=== PATIENT | female | born 1935 | race Caucasian/White ===

== ENCOUNTER → 2021-01-12 | Outpatient (CLI) | payer OTHER | END | disposition home or self-care (01) | LOC: Rad HDHVI 11:05 | PROVIDERS: ATTEND Internal Medicine Cardiovascular Disease | DX: I11.9 Hypertensive heart disease without heart failure (principal); R06.02 Shortness of breath | CPT/HCPCS: 93306 ==

== ENCOUNTER → 2021-01-18 | Outpatient (CLI) | payer OTHER ==
[~2021-01-18] VITALS: Ht 162.6 cm; Wt 77.1 kg
[~2021-01-18] MED LIST: ADENOSINE 65 MG in GIVE UN-DILUTED 0 ML IV ONE; ADENOSINE 90 MG/30 ML INJ IV ONE
== END | disposition home or self-care (01) ==
LOC: Rad HDHVI 13:27
PROVIDERS: ATTEND Internal Medicine
DX: I10 Essential (primary) hypertension (principal); R06.02 Shortness of breath; E78.5 Hyperlipidemia, unspecified; I48.91 Unspecified atrial fibrillation
CPT/HCPCS: 78452; 93005; 96374; 96375; A9500; J0153

== ENCOUNTER → 2022-04-19 | Outpatient (CLI) | payer OTHER | END | disposition home or self-care (01) | LOC: Rad HDHVI 09:56 | PROVIDERS: ATTEND Internal Medicine | DX: R07.89 Other chest pain (principal); R06.02 Shortness of breath; E78.5 Hyperlipidemia, unspecified | CPT/HCPCS: 93306 ==

== ENCOUNTER → 2023-02-19 | Outpatient (CLI) | payer OTHER | END | disposition home or self-care (01) | LOC: Rad HDHVI 13:57 | PROVIDERS: ATTEND Internal Medicine Cardiovascular Disease | DX: I08.8 Other rheumatic multiple valve diseases (principal); R00.2 Palpitations; R06.02 Shortness of breath | CPT/HCPCS: 93306 ==

== ENCOUNTER → 2023-03-24 | Outpatient (CLI) | payer OTHER | END | disposition home or self-care (01) | LOC: Rad HDHVI 11:02 | PROVIDERS: ATTEND Internal Medicine Cardiovascular Disease | DX: I65.23 Occlusion and stenosis of bilateral carotid arteries (principal); I10 Essential (primary) hypertension; E78.5 Hyperlipidemia, unspecified | CPT/HCPCS: 93880 ==

== ENCOUNTER → 2023-09-17 | Outpatient (CLI) | payer OTHER | END | disposition home or self-care (01) | LOC: Rad HDHVI 15:46 | PROVIDERS: ATTEND Internal Medicine Cardiovascular Disease | DX: I65.23 Occlusion and stenosis of bilateral carotid arteries (principal); I10 Essential (primary) hypertension; E78.5 Hyperlipidemia, unspecified | CPT/HCPCS: 93880 ==

== ENCOUNTER 2024-02-23 12:18 | Inpatient (IN) | payer OTHER ==
[~2024-02-23] VITALS: Ht 160 cm; Wt 76.4 kg
[2024-02-23] MEDS: levoFLOXacin 500MG 100 ML IV ONE ×2 (15:45→18:59)
[2024-02-23 16:16] LABS: Hemoglobin 10.1 g/dL (12.2-16.2); Mean Corpuscular Hemoglobin 28.4 pg (28.0-32.0); Mean Corpuscular Hgb Conc. 33.5 g/dL (32.0-36.0); Mean Corpuscular Volume 84.8 fL (80.0-100.0); Red Blood Cells 3.53 10^6/uL (4.0-5.20); Red Cell Distribution Width 15.2 % (11.8-14.3); White Blood Cell 5.4 10^3/uL (4.4-10.8)
[2024-02-23 16:23] LABS: Basophils % (manual) 0 (0.0-2.0); Blast Cells 0; Metamyelocytes % 0; Myelocytes % 0; Promyelocytes % 0; Reactive Lymphocytes 0
[2024-02-23 16:40] LABS: Alanine Aminotransferase 111 U/L (7-40); Albumin 3.6 g/dL (3.2-4.8); Alkaline Phosphatase 101 U/L (46-116); Anion Gap 6 (5-15); Aspartate Aminotransferase 105 U/L (13-40); BUN/Creatinine Ratio 23.4 (10.0-20.0); Bilirubin, Total 0.4 mg/dL (0.2-1.0); Blood Urea Nitrogen 18 mg/dL (9-23); Calcium 9.4 mg/dL (8.5-10.1); Carbon Dioxide 25 mmol/L (20-30); Chloride 98 mmol/L (98-107); Glucose 96 mg/dL (74-106); Potassium 4.6 mmol/L (3.5-5.1); Sodium 129 mmol/L (136-145)
[2024-02-23 16:41] LABS: Total Protein 6.5 g/dL (5.7-8.2)
[2024-02-23 16:45] LABS: INR 1.23 (0.9-1.15); Partial Thromboplastin Time 31.9 SEC (24.5-34.5); Prothrombin Time 12.8 sec (9.3-11.8)
[2024-02-23 17:26] LABS: Band Neutrophils % (manual) 5; Eosinophils % (manual) 2 (0-7); Lymphocytes % (manual) 30 (10.0-50.0); Monocytes % (manual) 14 (0-12); Platelet Estimate Adequate
[2024-02-23 18:33] LABS: Urine Bacteria None Seen /hpf (None Seen)
[2024-02-23 18:45] LABS: Urine Blood 1+ /uL (Negative); Urine Clarity Ex.Turbid (Clear); Urine Color Light-Orange (Yellow); Urine Protein, UAD 2+ (Negative); Urine Urobilinogen Normal (Negative); Urine WBC 3138 /hpf (0 - 5); Urine WBC Clumps PRESENT /hpf (None Seen)
[2024-02-23] MEDS: SODIUM CHLORIDE 0.9% 1,000 ML IV ONE (18:59)
[2024-02-23 20:00] VITALS: PULSE 88; RESP 17; O2SAT 96
[2024-02-23] MEDS: PHENAZOPYRIDINE HCL 100 MG TAB PO ONE (20:27)
[2024-02-23] MEDS ORDERED: ACETAMINOPHEN 325 MG TAB PO PRN (20:45)
[2024-02-23] MEDS ORDERED: ONDANSETRON HCL 4 MG/2 ML VIAL IV PRN (20:45)
[2024-02-23] MEDS: PHENAZOPYRIDINE HCL 100 MG TAB PO SCH (23:33)
[2024-02-23] MEDS: HYDROcodone-ACET 5/325MG TAB PO PRN (23:33)
[2024-02-23] MEDS: APIXABAN 2.5 MG TAB PO SCH (23:34)
[2024-02-23] MEDS: ATORVASTATIN 20 MG TAB PO SCH (23:34)
[2024-02-24 04:43] LABS: Basophils # (auto) 0 10 ^3/uL (0-0.2); Basophils % (auto) 0.4 % (0.0-2.0); Eosinophils # (auto) 0.1 10 ^3/uL (0-0.8); Eosinophils % (auto) 1.1 % (0.0-7.0); Hematocrit 30.3 % (36.0-46.0); Hemoglobin 10.2 g/dL (12.2-16.2); Lymphocytes # (auto) 1.5 10 ^3/uL (0.4-5.4); Lymphocytes % (auto) 17.9 % (10.0-50.0); Mean Corpuscular Hemoglobin 28.4 pg (28.0-32.0); Mean Corpuscular Hgb Conc. 33.6 g/dL (32.0-36.0); Mean Corpuscular Volume 84.3 fL (80.0-100.0); Monocytes # (auto) 1.2 10 ^3/uL (0-1.3); Monocytes % (auto) 15.3 % (0.0-12.0); Neutrophils # (auto) 5.3 10 ^3/uL (1.6-8.6); Neutrophils % (auto) 65.3 % (37.0-80.0); Red Blood Cells 3.59 10^6/uL (4.0-5.20); Red Cell Distribution Width 15.1 % (11.8-14.3); White Blood Cell 8.1 10^3/uL (4.4-10.8)
[2024-02-24 04:53] LABS: Alanine Aminotransferase 97 U/L (7-40); Albumin 3.3 g/dL (3.2-4.8); Alkaline Phosphatase 96 U/L (46-116); Anion Gap 7 (5-15); Aspartate Aminotransferase 82 U/L (13-40); BUN/Creatinine Ratio 23.2 (10.0-20.0); Bilirubin, Total 0.5 mg/dL (0.2-1.0); Blood Urea Nitrogen 16 mg/dL (9-23); Calcium 9.1 mg/dL (8.7-10.4); Carbon Dioxide 23 mmol/L (20-30); Chloride 98 mmol/L (98-107); Glucose 91 mg/dL (74-106); Potassium 4.6 mmol/L (3.5-5.1); Sodium 128 mmol/L (136-145); Total Protein 6.3 g/dL (5.7-8.2)
[2024-02-24] MEDS: LEVOTHYROXINE SODIUM 50 MCG TAB PO SCH (06:17)
[2024-02-24 07:54] VITALS: PULSE 83; RESP 18; O2SAT 96
[2024-02-24] MEDS: cefTRIAXone 1GM/50ML D5W 50 ML IV SCH (08:12)
[2024-02-24] MEDS: METOPROLOL SUCCINATE XL 50 MG TAB PO SCH (09:46)
[2024-02-24] MEDS: LISINOPRIL 5 MG TAB PO SCH (09:46)
[2024-02-24 18:55] LABS: Triglycerides 71 mg/dL (< 150)
[2024-02-24 18:56] LABS: LDL Cholesterol 44 mg/dL (< 100)
[2024-02-24 18:57] LABS: HDL Cholesterol 41 mg/dL (40-59)
[2024-02-24 19:11] LABS: Cholesterol 94 mg/dL (< 200)
[2024-02-24 22:00] VITALS: BP 144/60; PULSE 78; RESP 18; TEMP 97.6; O2SAT 93
[2024-02-24 22:30] VITALS: PULSE 70; RESP 17; O2SAT 93
[2024-02-25] VITALS (7 sets, daily range): BP systolic 110–140; BP diastolic 23–62; PULSE 70–85; RESP 17–18; TEMP 97.7–98.4; O2SAT 92–98
[2024-02-25 01:35] LABS: Creatinine, Urine 38.97 mg/dL (30.0-125.0)
[2024-02-25 07:15] LABS: Alanine Aminotransferase 237 U/L (7-40); Albumin 3.5 g/dL (3.2-4.8); Alkaline Phosphatase 272 U/L (46-116); Anion Gap 5 (5-15); Aspartate Aminotransferase 314 U/L (13-40); BUN/Creatinine Ratio 23.5 (10.0-20.0); Basophils # (auto) 0 10 ^3/uL (0-0.2); Basophils % (auto) 0.4 % (0.0-2.0); Bilirubin, Total 0.4 mg/dL (0.2-1.0); Blood Urea Nitrogen 16 mg/dL (9-23); Calcium 9.4 mg/dL (8.5-10.1); Carbon Dioxide 26 mmol/L (20-30); Chloride 99 mmol/L (98-107); Eosinophils # (auto) 0.2 10 ^3/uL (0-0.8); Eosinophils % (auto) 2.9 % (0.0-7.0); Glucose 93 mg/dL (74-106); Hematocrit 31.3 % (36.0-46.0); Hemoglobin 10.5 g/dL (12.2-16.2); Lymphocytes # (auto) 1.2 10 ^3/uL (0.4-5.4); Lymphocytes % (auto) 18.4 % (10.0-50.0); Mean Corpuscular Hemoglobin 28.6 pg (28.0-32.0); Mean Corpuscular Hgb Conc. 33.5 g/dL (32.0-36.0); Mean Corpuscular Volume 85.4 fL (80.0-100.0); Monocytes # (auto) 0.9 10 ^3/uL (0-1.3); Monocytes % (auto) 13.2 % (0.0-12.0); Neutrophils # (auto) 4.2 10 ^3/uL (1.6-8.6); Neutrophils % (auto) 65.1 % (37.0-80.0); Nucleated Red Blood Cells % 0.1 %; Potassium 4.2 mmol/L (3.5-5.1); Red Blood Cells 3.67 10^6/uL (4.0-5.20); Red Cell Distribution Width 15.4 % (11.8-14.3); Sodium 130 mmol/L (136-145); Total Protein 6.2 g/dL (5.7-8.2); White Blood Cell 6.4 10^3/uL (4.4-10.8)
[2024-02-25 07:46] LABS: Free T3 1.93 pg/mL (2.3-4.2); Free T4 (Free Thyroxine) 1.42 ng/dL (0.89-1.76)
[2024-02-25] MEDS ORDERED: APIX2.5T PO (12:51)
[2024-02-25] MEDS ORDERED: METO25TA5 PO (12:51)
[2024-02-25] MEDS ORDERED: PRAV20TA3 PO (12:53)
[2024-02-25] MEDS ORDERED: FLEC1TAB PO (12:53)
[2024-02-25] MEDS ORDERED: LISI40TA16 PO (12:53)
[2024-02-25] MEDS ORDERED: LEVO88TA4 PO (12:53)
[2024-02-25] MEDS: SODIUM CHLORIDE 0.9% 1,000 ML IV ONE (17:00)
[2024-02-25] MEDS: LACTULOSE 20Gm/30ML SOLN PO SCH (17:40)
[2024-02-25] MEDS: MELATONIN 5 MG TAB PO SCH (21:30)
[2024-02-26] VITALS (7 sets, daily range): BP systolic 111–147; BP diastolic 63–73; PULSE 67–107; RESP 16–19; TEMP 97.3–98.3; O2SAT 95–97
[2024-02-26 07:04] LABS: Basophils # (auto) 0 10 ^3/uL (0-0.2); Eosinophils # (auto) 0.2 10 ^3/uL (0-0.8); Monocytes # (auto) 0.8 10 ^3/uL (0-1.3)
[2024-02-26 07:07] LABS: Basophils % (auto) 0.6 % (0.0-2.0); Eosinophils % (auto) 3.8 % (0.0-7.0); Hematocrit 28.9 % (36.0-46.0); Hemoglobin 9.7 g/dL (12.2-16.2); Lymphocytes # (auto) 1.3 10 ^3/uL (0.4-5.4); Lymphocytes % (auto) 19.5 % (10.0-50.0); Mean Corpuscular Hemoglobin 28.6 pg (28.0-32.0); Mean Corpuscular Hgb Conc. 33.5 g/dL (32.0-36.0); Mean Corpuscular Volume 85.5 fL (80.0-100.0); Monocytes % (auto) 12.9 % (0.0-12.0); Neutrophils # (auto) 4.1 10 ^3/uL (1.6-8.6); Neutrophils % (auto) 63.2 % (37.0-80.0); Nucleated Red Blood Cells % 0.1 %; Red Blood Cells 3.37 10^6/uL (4.0-5.20); Red Cell Distribution Width 15.1 % (11.8-14.3); White Blood Cell 6.5 10^3/uL (4.4-10.8)
[2024-02-26 07:25] LABS: Alanine Aminotransferase 151 U/L (7-40); Albumin 3.3 g/dL (3.2-4.8); Alkaline Phosphatase 198 U/L (46-116); Anion Gap 6 (5-15); Aspartate Aminotransferase 110 U/L (13-40); Blood Urea Nitrogen 17 mg/dL (9-23); Carbon Dioxide 25 mmol/L (20-30); Chloride 101 mmol/L (98-107); Glucose 101 mg/dL (74-106); Potassium 3.9 mmol/L (3.5-5.1); Sodium 132 mmol/L (136-145)
[2024-02-26 07:26] LABS: Bilirubin, Total 0.3 mg/dL (0.2-1.0); Total Protein 5.9 g/dL (5.7-8.2)
[2024-02-26] MEDS ORDERED: CIPR-173 PO (18:32)
[2024-02-27 01:00] VITALS: BP 115/58; PULSE 79; RESP 16; TEMP 97.6; O2SAT 93
[2024-02-27 05:00] VITALS: BP 133/61; PULSE 76; RESP 18; TEMP 97.9; O2SAT 92
[2024-02-27 08:00] VITALS: PULSE 76; RESP 16; O2SAT 94
[2024-02-27 08:08] VITALS: BP 127/69; PULSE 76; RESP 16; TEMP 98.8; O2SAT 94
[2024-02-27] MEDS: CIPROFLOXACIN HCL 500 MG TAB PO SCH (09:11)
[2024-02-27 11:18] VITALS: BP 127/69; PULSE 76; RESP 16; TEMP 98.9; O2SAT 94
[2024-02-27 11:48] VITALS: BP 136/67; PULSE 83; RESP 17; TEMP 97.9; O2SAT 94
== END 2024-02-27 14:20 | disposition home or self-care (01) | DRG 690 ==
LOC: EDBD 12:18 → ER 12:18 → OVERFLOW 20:48 → CENTRAL 02-24 22:30
PROVIDERS: ADMIT Internal Medicine Pulmonary Disease; ATTEND Internal Medicine Pulmonary Disease
DX: N39.0 Urinary tract infection, site not specified (principal); E87.1 Hypo-osmolality and hyponatremia; E86.0 Dehydration; E78.5 Hyperlipidemia, unspecified; E03.9 Hypothyroidism, unspecified; I10 Essential (primary) hypertension; M10.9 Gout, unspecified; I48.91 Unspecified atrial fibrillation; Z79.899 Other long term (current) drug therapy
CPT/HCPCS: 36415; 71045; 74176; 80053; 80061; 81001; 82533; 82570; 83605; 83690; 83880; 83930; 83935; 84300; 84439; 84443; 84481; 84484; 85007; 85025; 85027; 85610; 85730; 87081; 87086; 87088; 87186; 93005; 96361; 96365; 96367; 97110; 97116; 97163; 97530; G0378; J1956

== ENCOUNTER → 2024-06-25 | Outpatient (CLI) | payer OTHER ==
[~2024-06-25] MED LIST changes: -ADENOSINE 65 MG in GIVE UN-DILUTED 0 ML IV ONE; -ADENOSINE 90 MG/30 ML INJ IV ONE; +APIX2.5T PO; +CIPR-173 PO; +FLEC1TAB PO; +LEVO88TA4 PO; +LISI40TA16 PO; +METO25TA5 PO; +PRAV20TA3 PO
== END | disposition home or self-care (01) ==
LOC: Rad HDHVI 13:57
PROVIDERS: ATTEND Internal Medicine Cardiovascular Disease
DX: I10 Essential (primary) hypertension (principal); R06.02 Shortness of breath
CPT/HCPCS: 93306

== ENCOUNTER → 2024-06-30 | Outpatient (CLI) | payer OTHER | END | disposition home or self-care (01) | LOC: Rad HDHVI 12:32 | PROVIDERS: ATTEND Internal Medicine Cardiovascular Disease | DX: I10 Essential (primary) hypertension (principal) | CPT/HCPCS: 93880 ==

== ENCOUNTER 2025-04-03 11:07 | Inpatient (IN) | payer OTHER ==
[~2025-04-03] VITALS: Ht 154.9 cm; Wt 68.0 kg
--- NOTE | 2025-04-03 11:28 | ED.PDOC ---
Back pain HPI HPI Comments 89 y/o F, BIBA, with PMHx of GOUT, HTN, and AFib presents to the ED for CC of groin pain. EMS reports, patient is coming from home where she c/o right groin pain following a trip and fall [id number] ago. Patient relays, pain to worsen with movement. Upon arrival to the ED, patient is hypertensive with a blood pressure of 180/122mmHg. Patient denies head injury, open wounds, lacerations, or loss of consciousness. No other symptoms or modifying factors are present at this time. Chief Complaint: Lower Extremity Time Seen by MD: 11:25 Reviewed Notes: Nurses Notes, Stave Bolt Equalizer Notes, Medications, Allergies Allergies: Coded Allergies: NO KNOWN ALLERGIES (Unverified , 01/18/21) Home Meds Active Scripts Ciprofloxacin Hcl (Cipro) 500 Mg Tab, 1 TAB PO DAILY for 3 Days, #3 TAB Prov:BROOKLYN BRANDT RESIDENT 02/26/24 Reported Medications Levothyroxine Sodium (Levothyroxine Sodium) 88 Mcg Tab, 88 MCG PO QAM for 30 Days, MCG 02/25/24 Flecainide Acetate (Flecainide Acetate) 50 Mg Tab, 50 MG PO Q12HR for 30 Days 02/25/24 Pravastatin Sodium (PRAVACHOL TABLET) 20 Mg Tb, 40 MG PO DAILY, TAB 02/25/24 Lisinopril (Lisinopril) 40 Mg Tab, 1 TAB PO DAILY, #30 TAB 5 Refills 02/25/24 Metoprolol Tartrate (Metoprolol Tartrate) 25 Mg Tab, 25 MG PO DAILY for 30 Days, MG 02/25/24 Apixaban Base (ELIQUIS) 2.5 Mg Tab, 2.5 MG PO BID, TAB 02/25/24 Information Source: Patient, Emergency Med Personnel Mode of Arrival: EMS Timing: Weeks Duration: Since onset Location of Back pain: Other (groin pain) Severity: Moderate Prehospital treatment: None Onset: Fall History of: None Modifying Factors: Nothing Associated signs and symptoms: None Past Medical History PAST MEDICAL HISTORY: AFIB, Gout, HTN, Thyroid Surgical History: Denies all surgeries 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 COMPUTER DATA PROCESSOR History: Denies all MICRO COMPUTER DATA PROCESSOR Hx Family History Family History: Reviewed,noncontributory to illness Social History Smoker: Non-Smoker Alcohol: Denies ETOH Use Drugs: Denies Drug Use Lives In: Assisted Care Constitutional: denies: chills, diaphoresis, fatigue, fever, malaise, sweats, weakness, others EENTM: denies: blurred vision, double vision, ear bleeding, ear discharge, ear drainage, ear pain, ear ringing, eye pain, eye redness, hearing loss, mouth pain, mouth swelling, nasal discharge, nose bleeding, nose congestion, nose pain, photophobia, tearing, throat pain, throat swelling, voice changes, others Respiratory: denies: cough, hemoptysis, orthopnea, SOB at rest, shortness of breath, SOB with excertion, stridor, wheezing, others Cardiovascular: denies: chest pain, dizzy spells, diaphoresis, Dyspnea on exertion, edema, irregular heart beat, left arm pain, lightheadedness, palpitations, PND, syncope, others Gastrointestinal: denies: abdomen distended, abdominal pain, blood streaked bowels, constipated, diarrhea, dysphagia, difficulty swallowing, hematemesis, melena, nausea, poor appetite, poor fluid intake, rectal bleeding, rectal pain, vomiting, others Genitourinary: denies: abnormal vagina bleeding, burning, dyspareunia, dysuria, flank pain, frequency, hematuria, incontinence, pain, , vagina discharge, urgency, others Neurological: denies: dizziness, fainting, headache, left sided numbness, left sided weakness, numbness, paresthesia, pre-existing deficit, right sided numbness, right sided weakness, seizure, speech problems, tingling, tremors, weakness, others Musculoskeletal: denies: back pain, gout, joint pain, joint swelling, muscle pain, muscle stiffness, neck pain, others Integumetry: denies: bruises, change in color, change in hair/nails, dryness, laceration, lesions, lumps, rash, wounds, others Allergic/Immunocompromised: denies: Difficulty Healing, Frequent Infections, Hives, Itching, others Hematologic/Lymphatic: denies: anemia, blood clots, easy bleeding, easy bruising, swollen glands, others Endocrine: denies: excessive hunger, excessive sweating, excessive thirst, excessive urination, flushing, intolerance to cold, intolerance to heat, unexplained weight gain, unexplained weight loss, others Psychiatric: denies: anxiety, bipolar disorder, depression, hopeless, panic disorder, schizophrenia, sleepless, suicidal, others All Other Systems: Reviewed and Negative Physical Exam General Appearance: Moderate Distress HEENT: Normal ENT Inspection, Pharynx Normal, TMs Normal Neck: Full Range of Motion, Non-Tender, Normal, Normal Inspection Respiratory: Chest Non-Tender, Lungs Clear, No Accessory Muscle Use, No Respiratory Distress, Normal Breath Sounds Cardiovascular: No Edema, No JVD, No Murmur, No Gallop, Normal Peripheral Pulses, Regular Rate/Rhythm Breast Exam: Deferred Gastrointestinal: No Organomegaly, Non Tender, No Pulsatile Mass, Normal Bowel Sounds, Soft Genitalia: Deferred Pelvic: Deferred Rectal: Deferred Extremities: Decreased range of motion (Right lower extremity), No calf tenderness, No pedal edema Musculoskeletal : Apperance: Normal Neurologic: Alert Cerebellar Function: NOT DONE Reflexes: NOT DONE Skin: Dry, Normal Color, Warm Peripheral Pulses: 3+ Radial (R), 3+ Radial (L) Lymphatic: No Adenopathy Was a procedure done? Was a procedure done?: No Back Pain Differential Dx Differential Diagnosis: Fracture, Musculoskeletal Pain, Strain X-Ray, Labs, Meds, VS Vital Signs Date Time Temp Pulse Resp B/P (MAP) Pulse Ox O2 Delivery O2 Flow Rate FiO2 04/03/25 12:50 74 16 94 Room Air 04/03/25 12:50 98.2 74 16 160/76 (104) 94 98.2 04/03/25 12:49 160/76 04/03/25 11:11 98.4 80 18 180/122 96 98.4 Current Medications Medications (Trade) Dose Ordered Sig/Rafia Route Start Time Stop Time Status Last Admin Clonidine HCl (Catapres Tablet) 0.2 mg ONCE ONCE PO 04/03/25 11:30 04/03/25 11:31 DC 04/03/25 12:49 Patient alert pain Complaining of right lower extremity pain. Has been having on and off pain ever since she fall two weeks ago. Vitals stable. Unable to ambulate. Blood pressure elevated pain Was given clonidine. Physiotherapy. Explained to the patient she will be admitted for treatment. Continue monitoring. Time of 1ST Reevaluation: 11:55 Reevaluation 1ST: Unchanged Patient Education/Counseling: Diagnosis, Treatment Family Education/Counseling: No Family Present SEPSIS Sepsis Screen Date sepsis recognized/suspect: Apr 03, 2025 Time Sepsis recognized/suspect: 1111 Recent Procedure: No On Antibiotic Therapy: No Respiratory Rate >20: No Heart Rate >90: No Temp<36 C (96.8 F) or >38.3 C: No SBP <90 or MAP <65 mmHG: No New Acute Mental Status Change: No Is the patient on CPAP, BIPAP,: No Vital Signs Date Time Temp Pulse Resp B/P (MAP) Pulse Ox O2 Delivery O2 Flow Rate FiO2 04/03/25 12:50 74 16 94 Room Air 04/03/25 12:50 98.2 74 16 160/76 (104) 94 98.2 04/03/25 12:49 160/76 04/03/25 11:11 98.4 80 18 180/122 96 98.4 Medications Medications Dose Ordered Sig/Rafia Route Start Time Stop Time Status Last Admin Dose Admin Clonidine HCl 0.2 mg ONCE ONCE PO 04/03/25 11:30 04/03/25 11:31 DC 04/03/25 12:49 Departure 1 Departure Time of Disposition: 13:33 Impression: Primary Impression: Hypertensive urgency Additional Impression: Chronic pain syndrome Disposition: ADMITTED INPATIENT Admit to: Med Surg Condition: Guarded Critical Care Note Critical Care Time?: Yes (90 min-critical care time only) Critical care comment: Monitoring her ambulation Stability Stability form required: No Heart Score Heart Score: Heart Score Response (Comments) Value History N/A 0 EKG N/A 0 Age N/A 0 Risk Factors N/A 0 Troponin N/A 0 Total 0 I personally scribed for MARCEL TALAMANTES MD ([email or web address]) on 04/03/25 at 11:28. Electronically submitted by Nancy Palacio ([email or web address]). I personally scribed for MARCEL TALAMANTES MD ([email or web address]) on 04/03/25 at 11:35. Electronically submitted by Nancy Palacio ([email or web address]). MARCEL TALAMANTES MD Apr 03, 2025 11:28
[2025-04-03] MEDS: HYDROcodone-ACET 10/325MG TAB PO ONE (14:28)
--- NOTE | 2025-04-03 16:16 | DVH ---
EXAM: XY R KNEE 2V XRAY CLINICAL HISTORY: fall COMPARISON: None TECHNIQUE: XY R KNEE 2V XRAY Findings/Impression: 2 views of the right knee. There is no evidence of an acute fracture, dislocation, blastic, or lytic lesions. Intramedullary ginger and screw fixation of the distal femur. Osteopenia. Trace joint effusion with mild soft tissue edema.
--- NOTE | 2025-04-03 16:17 | DVH ---
EXAM: XY R FEMUR XRAY CLINICAL HISTORY: fall COMPARISON: None TECHNIQUE: XY R FEMUR XRAY Findings/Impression: 2 views of the right femur. Mildly displaced right femoral transcervical neck fracture. There is no evidence of dislocation, blastic, or lytic lesions. [id number] atherosclerosis. Intramedullary ginger and screw fixation of the right femur.
--- NOTE | 2025-04-03 16:21 | DVH ---
PROCEDURE: Pelvis radiographs. INDICATION: fall TECHNIQUE: Single frontal view of the pelvis were obtained. COMPARISON: None. FINDINGS: There is acute impacted basicervical right femoral neck fracture. There is an intramedulla ry nail in the proximal femur. Bilateral hip joint space narrowing is noted. IMPRESSION: 1. Acute impacted basicervical right femoral neck fracture. HS:Y
--- NOTE | 2025-04-03 18:26 | DVHHP2 ---
Admitting Diagnosis: Groin pain History of Present Illness 89 y/o F, BIBA, with PMHx of GOUT, HTN, and AFib presents to the ED for CC of groin pain. EMS reports, patient is coming from home where she c/o right groin pain following a trip and fall [id number] ago. Patient relays, pain to worsen with movement. Upon arrival to the ED, patient is hypertensive with a blood pressure of 180/122mmHg. Patient denies head injury, open wounds, lacerations, or loss of consciousness. No other symptoms or modifying factors are present at this time. PAST MEDICAL HISTORY: AFIB, Gout, HTN, Thyroid Surgical History: Denies all surgeries CLINICAL PROJECT MANAGER History: Denies all CLINICAL PROJECT MANAGER Hx Family History Family History: Reviewed,noncontributory to illness Social History Smoker: Non-Smoker Alcohol: Denies ETOH Use Drugs: Denies Drug Use Lives In: Assisted Care Patient Family History: Patient reports no known family medical history. Allergies: Coded Allergies: NO KNOWN ALLERGIES (Unverified , 01/18/21) Home Meds Active Scripts Ciprofloxacin Hcl (Cipro) 500 Mg Tab, 1 TAB PO DAILY for 3 Days, #3 TAB Prov:BROOKLYN BRANDT RESIDENT 02/26/24 Reported Medications Levothyroxine Sodium (Levothyroxine Sodium) 88 Mcg Tab, 88 MCG PO QAM for 30 Days, MCG 02/25/24 Flecainide Acetate (Flecainide Acetate) 50 Mg Tab, 50 MG PO Q12HR for 30 Days 02/25/24 Pravastatin Sodium (PRAVACHOL TABLET) 20 Mg Tb, 40 MG PO DAILY, TAB 02/25/24 Lisinopril (Lisinopril) 40 Mg Tab, 1 TAB PO DAILY, #30 TAB 5 Refills 02/25/24 Metoprolol Tartrate (Metoprolol Tartrate) 25 Mg Tab, 25 MG PO DAILY for 30 Days, MG 02/25/24 Apixaban Base (ELIQUIS) 2.5 Mg Tab, 2.5 MG PO BID, TAB 02/25/24 Vital Signs Vital Signs Date Time Temp Pulse Resp B/P (MAP) Pulse Ox O2 Delivery O2 Flow Rate FiO2 04/03/25 12:50 74 16 94 Room Air 04/03/25 12:50 98.2 160/76 (104) 98.2 Physical Exam Generally-89 years old woman, well nourished well developed. No apparent distress HEENT-atraumatic Heart-regular rate and rhythm Lungs clear to auscultate bilaterally Abdomen soft nontender nondistended Musculoskeletal-right hip tender to palpate. Pain with flexion extension abduction and adduction. Neuro-AO x3, no focal deficits SEPSIS Sepsis Screen Date sepsis recognized/suspect: Apr 03, 2025 Time Sepsis recognized/suspect: 1111 Recent Procedure: No On Antibiotic Therapy: No Respiratory Rate >20: No Heart Rate >90: No Temp<36 C (96.8 F) or >38.3 C: No SBP <90 or MAP <65 mmHG: No New Acute Mental Status Change: No Is the patient on CPAP, BIPAP,: No Physician Orders Pelvis Ap (04/03/25 13:31) R Femur Xray (04/03/25 13:31) R Knee 2v Xray (04/03/25 13:31) * Orthopedic Consult (04/03/25 18:21) Regular Diet (04/03/25 Dinner) Npo After Midnight (04/03/25 18:21) Npo (Nothing By Mouth) Diet (04/04/25 Breakfast) Lactated Ringers Lr (04/03/25 18:30) Sequential Compression Device (04/03/25 18:21) Admit (04/03/25 18:21) Code Status (04/03/25 18:21) Vital Signs .PER UNIT PROTOCOL (04/03/25 18:21) Review Orders With Adm.Md (04/03/25 18:21) Encourage Activity As Tolerate (04/03/25 18:21) Sodium Chloride Lock (Saline Lock Ns) (04/03/25 22:00) Docusate Sodium Capsule (Colace Capsule) (04/03/25 18:30) Acetaminophen Tablet (Tylenol Tablet) (04/03/25 18:30) Notify Md Of Changes From Base (04/03/25 18:21) Advance Directive (04/03/25 18:21) Patient Condition (04/03/25 18:21) Allergies (04/03/25 18:21) Hydrocodone-Acet 5/325mg Tab ([place] 5/32 (04/03/25 18:30) Ondansetron Hcl (Zofran) (04/03/25 18:30) Levothyroxine Tablet (Synthroid Tablet) (04/04/25 07:00) Metoprolol Tartrate Tablet (Lopressor Ta (04/04/25 10:00) Pravastatin Sodium Tablet (Pravachol Tab (04/04/25 10:00) (Nf) Lisinopril (04/04/25 10:00) Vital Signs Date Time Temp Pulse Resp B/P (MAP) Pulse Ox O2 Delivery O2 Flow Rate FiO2 04/03/25 12:50 74 16 94 Room Air 04/03/25 12:50 98.2 74 16 160/76 (104) 94 98.2 04/03/25 12:49 160/76 04/03/25 11:11 98.4 80 18 180/122 96 98.4 Medications Medications Dose Ordered Sig/Rafia Route Start Time Stop Time Status Last Admin Dose Admin Acetaminophen/ Hydrocodone Bitart 1 tab ONCE ONCE PO 04/03/25 13:45 04/03/25 13:46 DC 04/03/25 14:28 Clonidine HCl 0.2 mg ONCE ONCE PO 04/03/25 11:30 04/03/25 11:31 DC 04/03/25 12:49 Primary Diagnosis Right hip fracture Mechanical fall Plan IV fluids Orthopedic surgery consult last dose of Eliquis last night ivf pain control resume home meds full code npo after midnight scd for dvt ppx no gi ppx needed Plan discussed with: Patient Problems List: (1) Hip fracture, right Status: Acute Date of Service: Apr 03, 2025 Billing Provider: GERALD MORA MD Common Visit Codes: [id number] INP/OBS CARE (MOD) GERALD MORA MD Apr 03, 2025 18:26
[2025-04-03] MEDS ORDERED: ONDANSETRON HCL 4 MG/2 ML VIAL IV PRN (18:30)
[2025-04-03 20:41] VITALS: BP 144/75; PULSE 69; RESP 18; TEMP 98.3; O2SAT 97
[2025-04-03 20:42] VITALS: PULSE 69; RESP 18; O2SAT 97
[2025-04-03] MEDS: LACTATED RINGER'S 1,000 ML IV ONE (21:35)
[2025-04-03] MEDS: SODIUM CHLOR 0.9% PF (SALINE LOCK) 10ML VIAL/SYR IV SCH (21:46)
[2025-04-03] MEDS: PRAVASTATIN SODIUM 20 MG TAB PO SCH (22:05)
[2025-04-04 01:00] VITALS: BP 122/67; PULSE 66; RESP 18; TEMP 98.3; O2SAT 98
[2025-04-04] MEDS: ACETAMINOPHEN 325 MG TAB PO PRN (03:34)
[2025-04-04 05:00] VITALS: BP 124/65; PULSE 68; RESP 18; TEMP 97.6; O2SAT 92
[2025-04-04] MEDS: LEVOTHYROXINE SODIUM 88 MCG TAB PO SCH (06:33)
--- NOTE | 2025-04-04 06:41 | DVH ---
CHEST RADIOGRAPH Indication: possible surgery Technique: Single frontal view of the chest was obtained COMPARISON: XY CHEST PORTABLE on DOS: 02/23/24 FINDINGS: Lines and Tubes: None Lungs: Clear Pleura: No effusion. No pneumothorax. Cardiomediastinal contours: Unremarkable Bones: Unremarkable IMPRESSION: 1. No acute disease.
[2025-04-04 07:37] LABS: Hematocrit 37.7 % (36.0-46.0); Hemoglobin 13.5 g/dL (12.2-16.2); Mean Corpuscular Hemoglobin 31.4 pg (28.0-32.0); Mean Corpuscular Volume 87.6 fL (80.0-100.0); Nucleated Red Blood Cells % 0.0 %
[2025-04-04 07:52] LABS: INR 1.17 (0.9-1.15); Partial Thromboplastin Time 30.1 SEC (24.5-34.5); Prothrombin Time 12.2 sec (9.3-11.8)
--- NOTE | 2025-04-04 07:56 | DVHINCON2 ---
Date of service: Apr 04, 2025 Reason for Consultation Displaced right femoral neck fracture History of Present Illness 89 yo F sp mechanical fall 2 weeks ago onto her right side. Pain/swellin g/trouble walking that has been getting worse. She initially went to [facility] 2 weeks ago. Hx of ORIF right distal femur fracture at outside facility many years ago. 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 SECRETARY Hx Family History: Bone cancer G8 BROTHER FH: lung cancer G8 SISTER Allergies: Coded Allergies: NO KNOWN ALLERGIES (Unverified , 01/18/21) Home Meds Active Scripts Ciprofloxacin Hcl (Cipro) 500 Mg Tab, 1 TAB PO DAILY for 3 Days, #3 TAB Prov:BROOKLYN BRANDT RESIDENT 02/26/24 Reported Medications Levothyroxine Sodium (Levothyroxine Sodium) 88 Mcg Tab, 88 MCG PO QAM for 30 Days, MCG 02/25/24 Flecainide Acetate (Flecainide Acetate) 50 Mg Tab, 50 MG PO Q12HR for 30 Days 02/25/24 Pravastatin Sodium (PRAVACHOL TABLET) 20 Mg Tb, 40 MG PO DAILY, TAB 02/25/24 Lisinopril (Lisinopril) 40 Mg Tab, 1 TAB PO DAILY, #30 TAB 5 Refills 02/25/24 Metoprolol Tartrate (Metoprolol Tartrate) 25 Mg Tab, 25 MG PO DAILY for 30 Days, MG 02/25/24 Apixaban Base (ELIQUIS) 2.5 Mg Tab, 2.5 MG PO BID, TAB 02/25/24 Current Medications Current Medications Medications (Trade) Dose Ordered Sig/Rafia Route PRN Reason Start Time Stop Time Status Last Admin Sodium Chloride (Saline Lock Ns) 10 ml Q8HR IV 04/03/25 22:00 04/04/25 06:00 Docusate Sodium (Colace Capsule) 100 mg BIDPRN PRN PO FOR CONSTIPATION 04/03/25 18:30 Acetaminophen (Tylenol Tablet) 650 mg Q6HP PRN PO PAIN SCALE 1-3 OR TEMP>100.4 04/03/25 18:30 04/04/25 03:34 Acetaminophen/ Hydrocodone Bitart ([place] 5/325MG Tab) 1 tab Q4HP PRN PO MODERATE PAIN (4-6 PAIN SCALE) 04/03/25 18:30 Ondansetron HCl (Zofran) 4 mg Q4HP PRN IV NAUSEA / VOMITING 04/03/25 18:30 Levothyroxine Sodium (Synthroid Tablet) 88 mcg QAM PO 04/04/25 07:00 Metoprolol Tartrate (Lopressor Tablet) 25 mg DAILY PO 04/04/25 10:00 Future Hold Pravastatin Sodium (Pravachol Tablet) 40 mg HS PO 04/03/25 22:00 04/03/25 22:05 Lisinopril (Zestril Tablet) 40 mg DAILY PO 04/04/25 10:00 Review of Systems 10 point ROS is neg except per HPI Vital Signs Vital Signs Date Time Temp Pulse Resp B/P (MAP) Pulse Ox O2 Delivery O2 Flow Rate FiO2 04/04/25 05:00 97.6 68 18 124/65 (84) 92 97.6 04/03/25 20:42 Room Air* 0 21 Physical Exam NAD RLE: short/rotated +TA/GS/EHL/FHL foot wwp prev incisions well healed Labs/Diagnostic Data Labs Test 04/04/25 07:03 Range/Units White Blood Count 6.6 4.4-10.8 10^3/uL Red Blood Count 4.30 4.0-5.20 10^6/uL Hemoglobin 13.5 12.2-16.2 g/dL Hematocrit 37.7 36.0-46.0 % Mean Corpuscular Volume 87.6 80.0-100.0 fL Mean Corpuscular Hemoglobin 31.4 28.0-32.0 pg Mean Corpuscular Hemoglobin Concent 35.8 32.0-36.0 g/dL Red Cell Distribution Width 13.7 11.8-14.3 % Platelet Count 341 140-450 10^3/uL Mean Platelet Volume 7.1 6.9-10.8 fL Neutrophils (%) (Auto) 62.6 37.0-80.0 % Lymphocytes (%) (Auto) 26.0 10.0-50.0 % Monocytes (%) (Auto) 9.1 0.0-12.0 % Eosinophils (%) (Auto) 1.8 0.0-7.0 % Basophils (%) (Auto) 0.5 0.0-2.0 % Neutrophils # (Auto) 4.2 1.6-8.6 10 ^3/uL Lymphocytes # (Auto) 1.7 0.4-5.4 10 ^3/uL Monocytes # (Auto) 0.6 0-1.3 10 ^3/uL Eosinophils # (Auto) 0.1 0-0.8 10 ^3/uL Basophils # (Auto) 0 0-0.2 10 ^3/uL Nucleated Red Blood Cells 0.0 % Plan/Recommendation 89 yo F with hx of ORIF right distal femur fracture with IMN and a displaced right femoral neck fracture 1. I rec patient to go to a trauma center where she will need to have right retrograde femoral nail removal at same time of arthroplasty procedure -- she will need orthopedic trauma specialist 2. NWB RLE 3. pain control 4. resume diet for today Plan discussed with: Patient MARI NESS MD Apr 04, 2025 07:56
[2025-04-04 08:02] LABS: Albumin 4.0 g/dL (3.2-4.8); Alkaline Phosphatase 102 U/L (46-116); Anion Gap 12 (5-15); BUN/Creatinine Ratio 23.1 (10.0-20.0); Bilirubin, Total 1.0 mg/dL (0.2-1.0); Blood Urea Nitrogen 18 mg/dL (9-23); Calcium 9.3 mg/dL (8.7-10.4); Carbon Dioxide 23 mmol/L (20-31); Chloride 98 mmol/L (98-107); Glucose 85 mg/dL (74-106); Potassium 4.0 mmol/L (3.5-5.1); Total Protein 6.5 g/dL (5.7-8.2)
[2025-04-04 08:03] LABS: Alanine Aminotransferase 129 U/L (7-40); Sodium 133 mmol/L (136-145)
[2025-04-04 08:59] VITALS: BP 134/85; PULSE 80; RESP 18; TEMP 97.9; O2SAT 97
[2025-04-04] MEDS: LISINOPRIL 20 MG TAB PO SCH (09:04)
[2025-04-04] MEDS ORDERED: METO25TA93 PO (09:47)
[2025-04-04] MEDS ORDERED: METOPROLOL TARTRATE 25 MG TAB PO SCH (10:00)
--- NOTE | 2025-04-04 11:35 | DVH ---
History: fracture Comparison Study: XY PELVIS AP on DOS: 04/03/25, CT CT AB PEL WO CON-NO ORAL OR IV on DOS: 02/25/24 Technique: Multidetector spiral CT of the pelvis was performed from iliac crests to pubic symphysis. 100 cc of intravenous contrast was administered during this examination. Portal venous imaging was obtained. Axial, coronal and sagittal multiplanar reformats were performed by the technologist on a separate workstation. Radiation Dose : CT Dose: CTDI volume is 16.11 mGy. Dose-length product is 644.56 mGy*cm Findings: Visualized bowel: Small bowel and colon are normal in caliber and distribution. The appendix is not visualized; however, no secondary findings of acute appendicitis identified. Ascites: Absent Lymphadenopathy: No pelvic or mesenteric lymphadenopathy. Pelvis Wall and Mesentery: Unremarkable. Vasculature: The visualized abdominal aorta is normal in size and caliber. Abdominal and pelvic vess els demonstrate normal enhancement. Pelvic Organs: Unremarkable Musculoskeletal: Diffuse osteopenia. Moderate degenerative changes of bilateral hips, [id number]-left. Displaced fracture of the proximal right femoral head neck junction. Intramedullary ginger fixation of the right femur, partially imaged. Bladder: Unremarkable IMPRESSION: Displaced fracture of the proximal right femoral head neck junction.
[2025-04-04] MEDS: ENOXAPARIN SOD 80 MG/0.8ML SYRINGE SC ONE (12:37)
[2025-04-04 13:00] VITALS: BP 149/88; PULSE 73; RESP 16; TEMP 98.1; O2SAT 98
--- NOTE | 2025-04-04 14:23 | DVHDSRES ---
Discharge Summary Date of Admission Resident Creating Document: KELVIN DIAZ RESIDENT Apr 03, 2025 at 18:21 Date of Discharge: Apr 04, 2025 Admitting Diagnosis Right Femoral Neck Fracture Wounds: No wounds Labs/Diagnostic Data: Laboratory Results Test 04/04/25 07:03 White Blood Count 6.6 10^3/uL (4.4-10.8) Red Blood Count 4.30 10^6/uL (4.0-5.20) Hemoglobin 13.5 g/dL (12.2-16.2) Hematocrit 37.7 % (36.0-46.0) Mean Corpuscular Volume 87.6 fL (80.0-100.0) Mean Corpuscular Hemoglobin 31.4 pg (28.0-32.0) Mean Corpuscular Hemoglobin Concent 35.8 g/dL (32.0-36.0) Red Cell Distribution Width 13.7 % (11.8-14.3) Platelet Count 341 10^3/uL (140-450) Mean Platelet Volume 7.1 fL (6.9-10.8) Neutrophils (%) (Auto) 62.6 % (37.0-80.0) Lymphocytes (%) (Auto) 26.0 % (10.0-50.0) Monocytes (%) (Auto) 9.1 % (0.0-12.0) Eosinophils (%) (Auto) 1.8 % (0.0-7.0) Basophils (%) (Auto) 0.5 % (0.0-2.0) Neutrophils # (Auto) 4.2 10 ^3/uL (1.6-8.6) Lymphocytes # (Auto) 1.7 10 ^3/uL (0.4-5.4) Monocytes # (Auto) 0.6 10 ^3/uL (0-1.3) Eosinophils # (Auto) 0.1 10 ^3/uL (0-0.8) Basophils # (Auto) 0 10 ^3/uL (0-0.2) Nucleated Red Blood Cells 0.0 % Prothrombin Time 12.2 sec (9.3-11.8) Prothrombin Time INR 1.17 (0.9-1.15) Activated Partial Thromboplast Time 30.1 SEC (24.5-34.5) Sodium Level 133 mmol/L (136-145) Potassium Level 4.0 mmol/L (3.5-5.1) Chloride Level 98 mmol/L (98-107) Carbon Dioxide Level 23 mmol/L (20-31) Anion Gap 12 (5-15) Blood Urea Nitrogen 18 mg/dL (9-23) Creatinine 0.78 mg/dL (0.550-1.02) Glomerular Filtration Rate Calc 73 mL/min (>90) BUN/Creatinine Ratio 23.1 (10.0-20.0) Serum Glucose 85 mg/dL (74-106) Calcium Level 9.3 mg/dL (8.7-10.4) Total Bilirubin 1.0 mg/dL (0.2-1.0) Aspartate Amino Transferase (AST) 84 U/L (13-40) Alanine Aminotransferase (ALT) 129 U/L (7-40) Alkaline Phosphatase 102 U/L (46-116) Total Protein 6.5 g/dL (5.7-8.2) Albumin 4.0 g/dL (3.2-4.8) Other Laboratory Tests 04/04/25 07:03 Brief Hx & Hospital Course: Patient is an 89-year-old female with prior medical history of gout, hypertension, hypothyroidism, AFib on Eliquis, and previous femoral fracture requiring surgery in December 2024, who presented to the ED by ambulance with chief complaint of hip pain. patient states that she tripped on a throw rug at home and fell on March 18, 2025, and had instant on of severe right hip and groin pain with intensity 10/10. She states she was unable to get up on her own and had to be lifted into a chair by family. she was taken to [facility] where she states they were told she had no fractures was kept through the weekend for pain control and PT evaluation. She was discharged with home PT, and states the pain progressively got worse until she was unable to walk, which prompted her family to call EMS. On evaluation in the ED, patient was in moderate distress, unable to ambulate, and hypertensive. Initial labs are within normal range. Right femur x-ray shows mildly displaced right femoral transcervical neck fracture. Patient was admitted for further workup and monitoring. On admission, and was started on antihypertensive medication and pain regimen. Pelvic CT was ordered which showed displaced fracture of the proximal right femoral head neck junction. Eliquis has been discontinued, but due to history of AFib, therapeutic Lovenox was started. She was seen by Orthopedics who recommend, that due to the complexity of the case the patient be seen by an orthopedic trauma specialist. On evaluation today, patient stated she felt well, pain was controlled with medication and limited movement and vitals have remained stable. Social service consult for transfer to higher level of care has been placed. She is considered stable for transfer and will be transferred once accepted. Physical exam: General: Patient alert and oriented in person place and time. Patient following commands HEENT: Normocephalic, atraumatic, EOM intact, pink conjunctiva, pink moist mucous membrane Respiratory/pulmonary: Bilateral expansion, clear lungs bilaterally, vesicular murmurs present in almost all lung adame, no associated crackles or wheezes, no pain on palpation Cardiovascular: Normal RRR, normal S1 and S2 Abdomen: Obese, abdomen nondistended, normal bowel sounds, soft, no pain to palpation in any of the abdominal quadrants, no palpable masses. Extremities: Right lower extremity is short and externally rotated, no peripheral edema present at the lower extremities, pain to palpation of right hip, normal pulses Skin: No rashes or pruritus Neurological: Intact cranial nerves with no focal neurologic deficits Case discussed with Dr. Slaughter. Goals of care discussed with the patient and her daughter Gilma for over 30 minutes, who state they understand and agree. Consults/Reason for consult Orthopedics was consulted due to femoral neck fracture. Operations or Procedures PROCEDURE(s): RFEM - R FEMUR XRAY REASON: fall ORDER NUMBER(s): [id number], ACCESSION NUMBER(s): [id number] EXAM: XY R FEMUR XRAY CLINICAL HISTORY: fall COMPARISON: None TECHNIQUE: XY R FEMUR XRAY Findings/Impression: 2 views of the right femur. Mildly displaced right femoral transcervical neck fracture. There is no evidence of dislocation, blastic, or lytic lesions. Knfo-nk-ejxpptiq atherosclerosis. Intramedullary ginger and screw fixation of the right femur. PROCEDURE(s): RKNE2 - R KNEE 2V XRAY REASON: fall ORDER NUMBER(s): [id number], ACCESSION NUMBER(s): [id number] EXAM: XY R KNEE 2V XRAY CLINICAL HISTORY: fall COMPARISON: None TECHNIQUE: XY R KNEE 2V XRAY Findings/Impression: 2 views of the right knee. There is no evidence of an acute fracture, dislocation, blastic, or lytic lesions. Intramedullary ginger and screw fixation of the distal femur. Osteopenia. Trace joint effusion with mild soft tissue edema. PROCEDURE(s): PELVS - PELVIS AP REASON: fall ORDER NUMBER(s): [id number], ACCESSION NUMBER(s): [id number] PROCEDURE: Pelvis radiographs. INDICATION: fall TECHNIQUE: Single frontal view of the pelvis were obtained. COMPARISON: None. FINDINGS: There is acute impacted basicervical right femoral neck fracture. There is an intramedullary nail in the proximal femur. Bilateral hip joint space narrowing is noted. IMPRESSION: 1. Acute impacted basicervical right femoral neck fracture. PROCEDURE(s): CXRP - CHEST PORTABLE REASON: possible surgery ORDER NUMBER(s): [id number], ACCESSION NUMBER(s): [id number] CHEST RADIOGRAPH Indication: possible surgery Technique: Single frontal view of the chest was obtained COMPARISON: XY CHEST PORTABLE on DOS: 02/23/24 FINDINGS: Lines and Tubes: None Lungs: Clear Pleura: No effusion. No pneumothorax. Cardiomediastinal contours: Unremarkable Bones: Unremarkable IMPRESSION: 1. No acute disease. PROCEDURE(s): PL2CT - PELVIS WO CONTRAST REASON: fracture ORDER NUMBER(s): [id number], ACCESSION NUMBER(s): [id number] History: fracture Comparison Study: XY PELVIS AP on DOS: 04/03/25, CT CT AB PEL WO CON-NO ORAL OR IV on DOS: 02/25/24 Technique: Multidetector spiral CT of the pelvis was performed from iliac crests to pubic symphysis. 100 cc of intravenous contrast was administered during this examination. Portal venous imaging was obtained. Axial, coronal and sagittal multiplanar reformats were performed by the technologist on a separate workstation. Radiation Dose : CT Dose: CTDI volume is 16.11 mGy. Dose-length product is 644.56 mGy*cm Findings: Visualized bowel: Small bowel and colon are normal in caliber and distribution. The appendix is not visualized; however, no secondary findings of acute appendicitis identified. Ascites: Absent Lymphadenopathy: No pelvic or mesenteric lymphadenopathy. Pelvis Wall and Mesentery: Unremarkable. Vasculature: The visualized abdominal aorta is normal in size and caliber. Abdominal and pelvic vessels demonstrate normal enhancement. Pelvic Organs: Unremarkable Musculoskeletal: Diffuse osteopenia. Moderate degenerative changes of bilateral hips, [id number]-left. Displaced fracture of the proximal right femoral head neck junction. Intramedullary ginger fixation of the right femur, partially imaged. Bladder: Unremarkable IMPRESSION: Displaced fracture of the proximal right femoral head neck junction. Condition at Discharge: Stable Final Diagnosis/Problems List Displaced fracture of the proximal right femoral head neck junction Hypertensive urgency Hypertension History of AFib History of hypothyroidism Discharge Disposition: Acute Care Facility Discharge Instruct/Medications Diet: Cardiac 2g Na,low cholest Activity: See Comment Activity comment: No weight bearing Follow Up/Referral: Follow up with PCP 1 week after discharge Follow up with orthopedist one week after discharge Medications: as per EMR Scheduled Apixaban Base (Eliquis), 2.5 MG PO BID, (Reported) Ciprofloxacin Hcl (Cipro), 1 TAB PO DAILY Flecainide Acetate (Flecainide Acetate), 50 MG PO Q12HR, (Reported) Levothyroxine Sodium (Levothyroxine Sodium), 88 MCG PO QAM, (Reported) Lisinopril (Lisinopril), 1 TAB PO DAILY, (Reported) Metoprolol Succinate (Metoprolol Succinate Er), 1 TAB PO DAILY, (Reported) Pravastatin Sodium (Pravachol Tablet), 40 MG PO DAILY, (Reported) Discontinued Medications Metoprolol Tartrate (Metoprolol Tartrate), 25 MG PO DAILY, (Reported) Discontinued Reason: Prescription changed Discharge Statement: "Patient was advised to return to the ER or call 911 if any headaches, dizziness, shortness of breath, chest pain, abdominal pain, bleeding, fevers, or worsening of medical condition. Patient was counseled about treatment plan, medications, possible side effects, patientverbalized understanding. All questions were answered to the best of my ability. This discharge took greater then 30 minutes in planning, reviewing documentation, counseling the patient, and discussing with other team members." ASSESSMENT ASSESSMENT Assessment Acute impaccted basicervical right femoral neck fracture Date of Service: Apr 04, 2025 Billing Provider: TRAVIS SLAUGHTER MD Common Visit Codes: [id number]/[id number] DISCH DAY >30min KELVIN DIAZ RESIDENT Apr 04, 2025 14:23 TRAVIS SLAUGHTER MD Apr 10, 2025 12:31
[2025-04-04] MEDS: HYDROcodone-ACET 5/325MG TAB PO PRN (14:31)
[2025-04-04 17:00] VITALS: BP 131/78; PULSE 78; RESP 16; TEMP 98; O2SAT 97
[2025-04-04 20:59] VITALS: BP 135/70; PULSE 93; RESP 18; TEMP 98; O2SAT 94
[2025-04-04] MEDS: ENOXAPARIN SOD 100 MG/1 ML SYRINGE SC SCH (21:27)
[2025-04-05 01:01] VITALS: BP 103/58; PULSE 67; RESP 16; TEMP 98.1; O2SAT 91
[2025-04-05 05:11] VITALS: BP 95/56; PULSE 66; RESP 17; TEMP 97.1; O2SAT 92
[2025-04-05 06:29] LABS: Hematocrit 39.8 % (36.0-46.0); Hemoglobin 13.9 g/dL (12.2-16.2); Mean Corpuscular Hemoglobin 30.7 pg (28.0-32.0); Mean Corpuscular Volume 87.8 fL (80.0-100.0); Nucleated Red Blood Cells % 0.1 %
[2025-04-05 06:53] LABS: Alkaline Phosphatase 100 U/L (46-116); Anion Gap 12 (5-15); BUN/Creatinine Ratio 29.7 (10.0-20.0); Calcium 9.5 mg/dL (8.7-10.4); Carbon Dioxide 21 mmol/L (20-31); Chloride 100 mmol/L (98-107); Glucose 91 mg/dL (74-106); Potassium 4.1 mmol/L (3.5-5.1); Total Protein 6.4 g/dL (5.7-8.2)
[2025-04-05 06:54] LABS: Albumin 3.8 g/dL (3.2-4.8); Bilirubin, Total 0.6 mg/dL (0.2-1.0)
[2025-04-05 06:56] LABS: Alanine Aminotransferase 85 U/L (7-40); Blood Urea Nitrogen 27 mg/dL (9-23); Sodium 133 mmol/L (136-145)
[2025-04-05 08:46] VITALS: BP 107/66; PULSE 62; RESP 18; TEMP 97.9; O2SAT 96
[2025-04-05 08:50] LABS: Urine Protein, UAD Negative (Negative)
[2025-04-05 12:51] VITALS: BP 101/55; PULSE 92; RESP 14; TEMP 97.3; O2SAT 98
--- NOTE | 2025-04-05 15:58 | DVHPNRES ---
Progress Note Date Seen: Apr 05, 2025 Resident Creating Document: KELVIN DIAZ Medical Necessity Reason Pt with a Central, PICC or Fol: Yes Reason for barraza catheter: Total Immobilization Medical Necessity Reason Patient is an 89-year-old female with prior medical history of gout, hypertension, hypothyroidism, AFib on Eliquis, and previous femoral fracture requiring surgery in December 2024, who presented to the ED by ambulance with chief complaint of hip pain. patient states that she tripped on a throw rug at home and fell on March 18, 2025, and had instant on of severe right hip and groin pain with intensity 10/10. She states she was unable to get up on her own and had to be lifted into a chair by family. she was taken to [facility] where she states they were told she had no fractures was kept through the weekend for pain control and PT evaluation. She was discharged with home PT, and states the pain progressively got worse until she was unable to walk, which prompted her family to call EMS. On evaluation in the ED, patient was in moderate distress, unable to ambulate, and hypertensive. Initial labs are within normal range. Right femur x-ray shows mildly displaced right femoral transcervical neck fracture. Patient was admitted for further workup and monitoring. On admission, and was started on antihypertensive medication and pain regimen. Pelvic CT was ordered which showed displaced fracture of the proximal right femoral head neck junction. Eliquis has been discontinued, but due to history of AFib, therapeutic Lovenox was started. She was seen by Orthopedics who recommend, that due to the complexity of the case the patient be seen by an orthopedic trauma specialist. On evaluation today, patient stated she felt well, pain was controlled with medication and limited movement and vitals have remained stable. Social service consult for transfer to higher level of care has been placed. She is considered stable for transfer and will be transferred once accepted. Patient seen at bedside. She states she feels well, pain is controlled, slept well, and is tolerating oral diet. Currently denies fever, nausea, chills, increased pain, diarrhea, shortness for breath, chest pain, or other symptoms. Vital signs have been stable. Follow up las within normal range. Patient has been accepted at [facility]. Currently pending insurance authorization for transfer and transportation. Objective vital signs Vital Sign Date Time Temp Pulse Resp B/P (MAP) Pulse Ox O2 Delivery O2 Flow Rate FiO2 04/05/25 12:51 97.3 92 14 101/55 (70) 98 97.3 04/05/25 08:08 Room Air* 0 21 Total Intake and Output 04/04/25 04/04/25 04/05/25 15:00 23:00 07:00 Intake Total 400 ml 600 ml Output Total 1200 ml Balance 400 ml -600 ml medications Current Medications Medications Dose Ordered Sig/Rafia Route Start Time Stop Time Status Last Admin Dose Admin Sodium Chloride 10 ml Q8HR IV 04/03/25 22:00 04/05/25 14:15 10 ML Docusate Sodium 100 mg BIDPRN PRN PO 04/03/25 18:30 Acetaminophen 650 mg Q6HP PRN PO 04/03/25 18:30 04/05/25 04:43 650 MG Acetaminophen/ Hydrocodone Bitart 1 tab Q4HP PRN PO 04/03/25 18:30 04/05/25 15:29 1 TAB Ondansetron HCl 4 mg Q4HP PRN IV 04/03/25 18:30 Levothyroxine Sodium 88 mcg QAM PO 04/04/25 07:00 04/05/25 06:47 88 MCG Metoprolol Tartrate 25 mg DAILY PO 04/04/25 10:00 Hold Pravastatin Sodium 40 mg HS PO 04/03/25 22:00 04/04/25 21:27 40 MG Lisinopril 40 mg DAILY PO 04/04/25 10:00 04/05/25 10:08 40 MG Enoxaparin Sodium 70 mg Q12HR SC 04/04/25 22:00 04/05/25 10:07 70 MG Examination General: Patient alert and oriented in person place and time. Patient following commands HEENT: Normocephalic, atraumatic, EOM intact, pink conjunctiva, pink moist mucous membrane Respiratory/pulmonary: Bilateral expansion, clear lungs bilaterally, vesicular murmurs present in almost all lung adame, no associated crackles or wheezes, no pain on palpation Cardiovascular: Normal RRR, normal S1 and S2 Abdomen: Obese, abdomen nondistended, normal bowel sounds, soft, no pain to palpation in any of the abdominal quadrants, no palpable masses. : Presence of barraza catheter draining clear urine Extremities: Right lower extremity is short and externally rotated, no peripheral edema present at the lower extremities, pain to palpation of right hip, normal pulses Skin: No rashes or pruritus Neurological: Intact cranial nerves with no focal neurologic deficits laboratory and microbiology Laboratory Tests 04/05/25 05:49 Test 04/05/25 05:49 Range/Units Serum Glucose 91 74-106 mg/dL Microbiology Date/Time Source Procedure Growth Status 04/04/25 05:00 Nose MRSA Screen - Final Complete Problem List/Assessment/Plan Problem List/Assessment/Plan Assessment and plan Displaced fracture of the proximal right femoral head neck junction R. femur fraction: displaced right femur transcervical neck fracture. Pelvic Xray: Acute impacted basicervical right femoral neck fracture Pelvis CT: displaced fracture of the proximal right femoral head next junction -Taylor 5 mg 1 tablet q4h PO PRN -Acetaminophen 650 mg q6 PO PRN -Per Orthopedics: recommend patient go to a trauma center where she will need to have right retrograde femoral nail removal at same time of arthroplasty procedure, she will need Orthopedic Trauma Specialists. Non weight bearing of the right lower extremity. Hypertensive urgency - clonidine 0.2 mg p.o. once Hypertension -Lisinopril 40 mg p.o. daily - metoprolol tartrate 25 mg p.o. daily History of AFib - Lovenox therapeutic dose 70 mg q.12 SC -Eliquis discontinued History of hypothyroidism - levothyroxine 88 mcg q.a.m. PO Patient has been accepted at [facility] for Orthopedic Trauma Surgery. Currently pending authorization. Case discussed with Dr. Slaughter. Goals of care discussed with the patient and her Gilma for over 30 minutes, who state they understand and agree. Plan discussed with: Patient, Daughter Date of Service: Apr 05, 2025 Billing Provider: TRAVIS SLAUGHTER MD Common Visit Codes: [id number] INP/OBS CARE(HIGH) KELVIN DIAZ RESIDENT Apr 05, 2025 15:58 TRAVIS SLAUGHTER MD Apr 10, 2025 12:32
[2025-04-05 16:55] VITALS: BP 122/62; PULSE 89; RESP 16; TEMP 97.8; O2SAT 98
[2025-04-05 21:00] VITALS: BP 114/60; PULSE 80; RESP 16; TEMP 98.9; O2SAT 93
[2025-04-06] VITALS (8 sets, daily range): BP systolic 119–143; BP diastolic 71–91; PULSE 71–97; RESP 14–17; TEMP 96.4–98.1; O2SAT 84–97
[2025-04-06 07:32] LABS: Hematocrit 39.4 % (36.0-46.0); Hemoglobin 13.7 g/dL (12.2-16.2); Mean Corpuscular Hemoglobin 31.0 pg (28.0-32.0); Mean Corpuscular Volume 89.5 fL (80.0-100.0); Nucleated Red Blood Cells % 0.3 %
[2025-04-06 07:47] LABS: Albumin 4.0 g/dL (3.2-4.8); Anion Gap 8 (5-15); BUN/Creatinine Ratio 30.6 (10.0-20.0); Bilirubin, Total 0.6 mg/dL (0.2-1.0); Calcium 9.4 mg/dL (8.7-10.4); Carbon Dioxide 22 mmol/L (20-31); Chloride 99 mmol/L (98-107); Glucose 96 mg/dL (74-106); Potassium 4.5 mmol/L (3.5-5.1); Total Protein 6.6 g/dL (5.7-8.2)
[2025-04-06 07:49] LABS: Alkaline Phosphatase 89 U/L (46-116)
[2025-04-06 07:59] LABS: Alanine Aminotransferase 63 U/L (7-40); Blood Urea Nitrogen 26 mg/dL (9-23); Sodium 129 mmol/L (136-145)
[2025-04-06] MEDS: DOCUSATE SOD 100 MG CAP PO PRN (08:23)
[2025-04-06] MEDS: POLYETHYLENE GLYCOL 17 GM PWDR PO SCH (15:11)
[2025-04-06] MEDS: DOCUSATE SOD 100 MG CAP PO SCH (15:11)
--- NOTE | 2025-04-06 17:08 | DVHPNRES ---
Progress Note Date Seen: Apr 06, 2025 Resident Creating Document: KELVIN DIAZ RESIDENT Medical Necessity Reason Pt with a Central, PICC or Fol: Yes Reason for barraza catheter: Total Immobilization Subjective Review of Systems Patient is an 89-year-old female with prior medical history of gout, hypertension, hypothyroidism, AFib on Eliquis, and previous femoral fracture requiring surgery in December 2024, who presented to the ED by ambulance with chief complaint of hip pain. patient states that she tripped on a throw rug at home and fell on March 18, 2025, and had instant on of severe right hip and groin pain with intensity 10/10. She states she was unable to get up on her own and had to be lifted into a chair by family. she was taken to [facility] where she states they were told she had no fractures was kept through the weekend for pain control and PT evaluation. She was discharged with home PT, and states the pain progressively got worse until she was unable to walk, which prompted her family to call EMS. On evaluation in the ED, patient was in moderate distress, unable to ambulate, and hypertensive. Initial labs are within normal range. Right femur x-ray shows mildly displaced right femoral transcervical neck fracture. Patient was admitted for further workup and monitoring. On admission, and was started on antihypertensive medication and pain regimen. Pelvic CT was ordered which showed displaced fracture of the proximal right femoral head neck junction. Eliquis has been discontinued, but due to history of AFib, therapeutic Lovenox was started. She was seen by Orthopedics who recommend, that due to the complexity of the case the patient be seen by an orthopedic trauma specialist. On evaluation today, patient stated she felt well, pain was controlled with medication and limited movement and vitals have remained stable. Social service consult for transfer to higher level of care has been placed. She is considered stable for transfer and will be transferred once accepted. Patient seen at bedside. She is AOx4, states she feels well and her pain is controlled, refers constipation. currently denies fever, nausea, chills, increased pain, diarrhea, shortness of breath, chest pain, and palpitations. Vitals have been stable. follow-up labs significant for sodium of 129. patient has been accepted at [facility] Tra[facility]. Currently awaiting for a room to become available. Objective vital signs Vital Sign Date Time Temp Pulse Resp B/P (MAP) Pulse Ox O2 Delivery O2 Flow Rate FiO2 04/06/25 13:00 97.8 81 16 119/71 (87) 97 97.8 04/06/25 08:00 Room Air* 0 21 Total Intake and Output 04/05/25 04/05/25 04/06/25 15:00 23:00 07:00 Intake Total 800 ml 300 ml Output Total 1100 ml 600 ml Balance -300 ml -300 ml medications Current Medications Medications Dose Ordered Sig/Rafia Route Start Time Stop Time Status Last Admin Dose Admin Sodium Chloride 10 ml Q8HR IV 04/03/25 22:00 04/06/25 13:44 10 ML Acetaminophen 650 mg Q6HP PRN PO 04/03/25 18:30 04/05/25 04:43 650 MG Acetaminophen/ Hydrocodone Bitart 1 tab Q4HP PRN PO 04/03/25 18:30 04/06/25 08:23 1 TAB Ondansetron HCl 4 mg Q4HP PRN IV 04/03/25 18:30 Levothyroxine Sodium 88 mcg QAM PO 04/04/25 07:00 04/06/25 06:25 88 MCG Metoprolol Tartrate 25 mg DAILY PO 04/04/25 10:00 Hold Pravastatin Sodium 40 mg HS PO 04/03/25 22:00 04/05/25 21:13 40 MG Lisinopril 40 mg DAILY PO 04/04/25 10:00 04/06/25 10:12 40 MG Enoxaparin Sodium 70 mg Q12HR SC 04/06/25 22:00 Docusate Sodium 100 mg BID PO 04/06/25 14:30 04/06/25 15:11 100 MG Polyethylene Glycol 17 gm DAILY PO 04/06/25 14:30 04/06/25 15:11 17 GM Examination General: Patient alert and oriented in person place and time. Patient following commands HEENT: Normocephalic, atraumatic, EOM intact, pink conjunctiva, pink moist mucous membrane Respiratory/pulmonary: Bilateral expansion, clear lungs bilaterally, vesicular murmurs present in almost all lung adame, no associated crackles or wheezes, no pain on palpation Cardiovascular: Normal RRR, normal S1 and S2 Abdomen: Obese, abdomen nondistended, normal bowel sounds, soft, no pain to palpation in any of the abdominal quadrants, no palpable masses. Extremities: Right lower extremity is short and externally rotated, no peripheral edema present at the lower extremities, pain to palpation of right hip, normal pulses Skin: No rashes or pruritus Neurological: Intact cranial nerves with no focal neurologic deficits laboratory and microbiology Laboratory Tests 04/06/25 06:53 Test 04/06/25 06:53 Range/Units Serum Glucose 96 74-106 mg/dL Microbiology Date/Time Source Procedure Growth Status 04/04/25 05:00 Nose MRSA Screen - Final Complete Problem List/Assessment/Plan Problem List/Assessment/Plan Assessment and plan Displaced fracture of the proximal right femoral head neck junction R. femur fraction: displaced right femur transcervical neck fracture. Pelvic Xray: Acute impacted basicervical right femoral neck fracture Pelvis CT: displaced fracture of the proximal right femoral head next junction -[place] 5 mg 1 tablet q4h PO PRN -Acetaminophen 650 mg q6 PO PRN -Per Orthopedics: recommend patient go to a trauma center where she will need to have right retrograde femoral nail removal at same time of arthroplasty procedure, she will need Orthopedic Trauma Specialists. Non weight bearing of the right lower extremity. Hypertensive urgency -Clonidine 0.2 mg p.o. once Hypertension -Lisinopril 40 mg p.o. daily -Metoprolol tartrate 25 mg p.o. daily History of AFib -Lovenox therapeutic dose 70 mg q.12 SC -Eliquis discontinued History of hypothyroidism - levothyroxine 88 mcg q.a.m. PO Hyponatremia Constipation -Colace 100 mg p.o. b.i.d. -MiraLax 17 g p.o. daily Patient currently accepted at [facility], is waiting for a room to become available for transfer. Case discussed with Dr. Slaughter. Goals of care discussed with the patient and her Gilma for over 30 minutes, who state they understand and agree. Plan discussed with: Patient, Daughter My Orders My Orders Orders - KELVIN DIAZ Procedure Category Date Status Time Enoxaparin Sodium PHA 04/06/25 In Process (Lovenox) 22:00 Docusate Sodium PHA 04/06/25 In Process Capsule (Colace 14:30 Polyethylene Glycol PHA 04/06/25 In Process 17g Powder (Miralax 14:30 Date of Service: Apr 06, 2025 Billing Provider: TRAVIS SLAUGHTER MD Common Visit Codes: [id number] INP/OBS CARE(HIGH) [facility] RESIDENT Apr 06, 2025 17:08 TRAVIS SLAUGHTER MD Apr 10, 2025 12:32
[2025-04-06] MEDS: ENOXAPARIN SOD 80 MG/0.8ML SYRINGE SC SCH (21:54)
[2025-04-07 01:00] VITALS: BP 122/67; PULSE 82; RESP 16; TEMP 98.1; O2SAT 97
== END 2025-04-07 02:15 | disposition short-term general hospital (02) | DRG 536 ==
LOC: EDUNIT# 11:07 → ER 11:07 → EDBD 11:07 → OVERFLOW 18:21 → EAST 20:41
PROVIDERS: ADMIT Internal Medicine Geriatric Medicine; ATTEND Emergency Medicine
DX: S72.031A Displaced midcervical fracture of right femur, initial encounter for closed fracture (principal); E87.1 Hypo-osmolality and hyponatremia; I16.0 Hypertensive urgency; E03.9 Hypothyroidism, unspecified; I10 Essential (primary) hypertension; K59.00 Constipation, unspecified; I48.91 Unspecified atrial fibrillation; G89.4 Chronic pain syndrome; M10.9 Gout, unspecified; Z80.1 Family history of malignant neoplasm of trachea, bronchus and lung; W01.0XXA Fall on same level from slipping, tripping and stumbling without subsequent striking against object, initial encounter; Y93.89 Activity, other specified; Y92.89 Other specified places as the place of occurrence of the external cause; Y99.8 Other external cause status
CPT/HCPCS: 36415; 71045; 72170; 72192; 73560; 80053; 81001; 85025; 85610; 85730; 86850; 86900; 86901; 87081; 99291; 99292; G0378

== ENCOUNTER 2025-04-12 14:03 | Inpatient (IN) | payer OTHER ==
[~2025-04-12] VITALS: Ht 160 cm; Wt 65.2 kg
[~2025-04-12 14:03] MED LIST changes: -METO25TA5 PO; +METO25TA93 PO
[2025-04-12 20:16] VITALS: BP 121/67; PULSE 109; RESP 18; O2SAT 94
[2025-04-12 21:00] VITALS: BP 129/81; PULSE 106; RESP 18; TEMP 98.8; O2SAT 96
[2025-04-12] MEDS ORDERED: FLE50T PO (21:06)
[2025-04-12] MEDS ORDERED: APIX5TAB PO (21:07)
[2025-04-12] MEDS ORDERED: HYDR12.55 PO (21:08)
[2025-04-12 23:23] LABS: Urine Protein, UAD 1+ (Negative)
[2025-04-12] MEDS ORDERED: ONDANSETRON HCL 4 MG/2 ML VIAL IV PRN (23:45)
[2025-04-12] MEDS ORDERED: MORPHINE SULFATE INJ 2 MG/ml SYRG IV PRN (23:45)
--- NOTE | 2025-04-12 23:55 | DVHHP2 ---
History of Present Illness Reason for Visit: Status post hemiarthroplasty of right hip History of Present Illness The patient is a 89-year-old female with past medical history of AFib on [place] iquis, hyperlipidemia, hypothyroidism, and hypertension who presented to [facility] with right hip pain after fall. Patient reports that she sustained fall at home 3 weeks ago, went to local hospital where they said she did not have fracture. However, painful to walk on and has been minimally ambulatory for 3 weeks. She went to [facility] last week due to pa in, got repeated imaging and was told that she has right femoral neck fracture. Patient was transferred to [facility] overnight due to complication. Patient was seen and evaluated by orthopedic surgeon at [place] and subsequently underwent right hip hemiarthroplasty successfully with a in the complication. Patient was stabilized and transferred back to [facility] for ongoing care secondary to insurance purposes. Please see medication orders section in the computer. On my assessment, patient denied chest pain, no headache, no dizziness, no diaphoresis, no shortness of breath, no nausea, no vomiting, no fever, no chills. Patient was admitted for further evaluation and medical management. Past Medical History AFib on Eliquis, hyperlipidemia, hypothyroidism, and hypertension Past Surgical History Right hip hemiarthroplasty Family History Reviewed, noncontributory to the management of this case. Past Social History The patient lives at home, denies smoking, alcohol or illicit drugs abuse. Review of Systems Constitutional: Yes: Weakness; No: Fever, Chills, Sweats, Malaise, Other Eyes: No: Pain, Vision change, Conjunctivae inflammation, Eyelid inflammation, Other, Redness ENT: No: Ear pain, Ear discharge, Nose pain, Nose discharge, Nose congestion, Mouth pain, Mouth swelling, Throat pain, Throat swelling, Other Respiratory: No: Cough, Dry, Shortness of breath, SOB with excertion, Wheezing, Hemoptysis, Pleuritic Pain, Sputum, Wheezing, Other Cardiovascular: No: Chest Pain, Palpitations, Orthopnea, Paroxysmal Noc. Dyspnea, Edema, Lt Headedness, Other Gastrointestinal: No: Nausea, Vomiting, Abdominal Pain, Diarrhea, Constipation, Melena, Hematochezia, Other Genitourinary: No Dysuria, No Frequency, No Incontinence, No Hematuria, No Retention, No Other Musculoskeletal: other (Right hip pain); No: neck pain, shoulder pain, arm pain, back pain, hand pain, leg pain, foot pain Skin: No: Rash, Lesions, Jaundice, Bruising, Other Neurological: No: Weakness, Numbness, Incoordination, Change in speech, Confusion, Seizures, Other Allergies: Coded Allergies: NO KNOWN ALLERGIES (Unverified , 01/18/21) Medications Current Medications Medications Dose Ordered Sig/Rafia Route Start Time Stop Time Status Last Admin Dose Admin Lisinopril 20 mg DAILY PO 04/13/25 10:00 UNV Levothyroxine Sodium 88 mcg QAM@0600 PO 04/13/25 06:00 UNV Atorvastatin Calcium 20 mg HS PO 04/13/25 22:00 UNV Metoprolol Tartrate 25 mg BID PO 04/13/25 10:00 UNV Hydralazine HCl 10 mg Q6HP PRN IV 04/12/25 23:45 UNV Sodium Chloride 1,000 ml @ 60 mls/hr [id number] IV 04/12/25 23:45 UNV Acetaminophen/ Hydrocodone Bitart 1 tab Q4HP PRN PO 04/12/25 23:45 UNV Ondansetron HCl 4 mg Q4HP PRN IV 04/12/25 23:45 UNV Docusate Sodium 100 mg BIDPRN PRN PO 04/12/25 23:45 UNV Enoxaparin Sodium 40 mg DAILY SC 04/13/25 10:00 UNV Acetaminophen 650 mg Q6HP PRN PO 04/12/25 23:45 UNV Morphine Sulfate 2 mg Q4HPRN PRN IV 04/12/25 23:45 UNV Ceftriaxone Sodium 50 ml @ 100 mls/hr DAILY@09 IV 04/13/25 09:00 UNV Exam Vital Signs Vital Signs Date Time Temp Pulse Resp B/P (MAP) Pulse Ox O2 Delivery O2 Flow Rate FiO2 04/12/25 21:00 98.8 106 18 129/81 (97) 96 98.8 General Appearance: Alert, Oriented X3, Cooperative, No acute distress HEENT: Atraumatic, PERRLA, EOMI, Mucous membr. moist/pink Respiratory: Normal air movement Cardiovascular: Regular rate, Normal S1, Normal S2, No murmurs Abdominal: Normal bowel sounds, Soft, No tenderness, No hepatospenomegaly, No masses Extremities: No clubbing, No cyanosis, Normal pulses, Other (Right hip tender ness) Skin: No rashes, No breakdown, No significant lesion Neuro: Normal speech, Normal tone, Sensation intact, Cranial nerves 3-12 NL, Reflexes 2+, Other (Generalized weakness) Psych/Mental Status: Mental status NL, Mood NL Labs/Xrays Labs Test 04/12/25 22:45 Range/Units Urine Color Light-yellow Yellow Urine Clarity Turbid H Clear Urine pH 7.5 5.0-9.0 Urine Specific [place] 1.016 1.001-1.035 Urine Protein 1+ H Negative Urine Ketones Negative Negative Urine Blood 1+ H Negative /uL Urine Nitrite Negative Negative Urine Bilirubin Negative Negative Urine Urobilinogen Normal Negative mg/dL Urine Leukocyte Esterase 3+ Negative /uL Urine RBC 11 0 - 4 /hpf Urine Microscopic WBC 105 H 0-5 /HPF Urine Squamous Epithelial Cells Few <5 /hpf Urine Bacteria None seen None Seen /hpf Urine Glucose Normal Normal mg/dL SEPSIS Sepsis Screen Date sepsis recognized/suspect: Apr 13, 2025 Physician Orders Insert Sparrow Catheter QSHIFT (04/12/25 21:58) Admit (04/12/25 22:37) * Wound Consult (04/12/25 ) Urine Bacterial Culture (04/12/25 22:53) Thyroid Stimulating Hormone (04/12/25 23:43) Lisinopril Tablet (Zestril Tablet) (04/13/25 10:00) Levothyroxine Tablet (Synthroid Tablet) (04/13/25 06:00) Atorvastatin (Lipitor) (04/13/25 22:00) Metoprolol Tartrate Tablet (Lopressor Ta (04/13/25 10:00) Hydralazine Injection (Apresoline Inject (04/12/25 23:45) Allergies (04/12/25 23:43) Code Status (04/12/25 23:43) Sodium Chloride 0.9% (04/12/25 23:45) Oxygen Per Hour (04/12/25 23:43) Hydrocodone-Acet 5/325mg Tab ([place] 5/32 (04/12/25 23:45) Ondansetron Hcl (Zofran) (04/12/25 23:45) Docusate Sodium Capsule (Colace Capsule) (04/12/25 23:45) Enoxaparin Sodium (Lovenox) (04/13/25 10:00) Complete Blood Count (04/13/25 04:00) Comprehensive Metabolic Panel (04/13/25 04:00) Cardiac Diet-2gna,Lofat,Lochol (04/13/25 Breakfast) Condition: Serious (04/12/25 23:43) Acetaminophen Tablet (Tylenol Tablet) (04/12/25 23:45) Maintain Bed Rest (04/12/25 23:43) Morphine Sulfate Injection (04/12/25 23:45) Ceftriaxone 1gm/50ml D5w (Rocephin) (04/13/25 09:00) Ceftriaxone 1gm/50ml D5w (Rocephin) (04/12/25 23:45) Vital Signs Date Time Temp Pulse Resp B/P (MAP) Pulse Ox O2 Delivery O2 Flow Rate FiO2 04/12/25 21:00 98.8 106 18 129/81 (97) 96 98.8 04/12/25 20:16 109 18 121/67 (85) 94 Assessment/Plan Assessment/Plan Status post hemiarthroplasty of right hip Urinary tract infection Generalized weakness Plan 1. Admit to med surge unit 2. Breathing treatment 3. Pain control management 4. IV antibiotic management 5. Management of fluids and electrolytes 6. Consultation for hospitalist 7. Diagnostic test chest x-ray 8. DVT prophylaxis on Lovenox 9. Repeat labs CBC, CMP in a.m. 10. Home medication reviewed and reconciled 11. Continue with current medical management 12. Treatment plan discussed with patient and RN. Patient verbalized understanding. Plan discussed with: Patient, Other (RN) My Orders Orders - NAVEEN HEARD DNP Procedure Category Date Status Time Insert Sparrow Catheter ERIN 04/12/25 In Process 21:58 Admit ADMIT 04/12/25 Transmitted 22:37 * Wound Consult CONS 04/12/25 Transmitted Urine Bacterial MIGUEL 04/12/25 In Process Culture 22:53 Thyroid Stimulating LAB 04/12/25 Logged Hormone 23:43 Lisinopril Tablet PHA 04/13/25 Logged (Zestril Tablet) 10:00 Levothyroxine Tablet PHA 04/13/25 Logged (Synthroid Tablet) 06:00 Atorvastatin (Lipitor) PHA 04/13/25 Logged 22:00 Metoprolol Tartrate PHA 04/13/25 Logged Tablet (Lopressor Ta 10:00 Hydralazine Injection PHA 04/12/25 Logged (Apresoline Inject 23:45 Allergies ERIN 04/12/25 In Process 23:43 Code Status CODE 04/12/25 Transmitted 23:43 Sodium Chloride 0.9% PHA 04/12/25 Logged 23:45 Oxygen Per Hour RT 04/12/25 Transmitted 23:43 Hydrocodone-Acet PHA 04/12/25 Logged 5/325mg Tab ([place] 23:45 Ondansetron Hcl PHA 04/12/25 Logged (Zofran) 23:45 Docusate Sodium PHA 04/12/25 Logged Capsule (Colace 23:45 Enoxaparin Sodium PHA 04/13/25 Logged (Lovenox) 10:00 Complete Blood Count LAB 04/13/25 Verified 04:00 Comprehensive LAB 04/13/25 Verified Metabolic Panel 04:00 Cardiac DIET 04/13/25 Transmitted Diet-2gna,Lofat,Lochol Breakfast Condition: Serious ERIN 04/12/25 In Process 23:43 Acetaminophen Tablet PHA 04/12/25 Logged (Tylenol Tablet) 23:45 Maintain Bed Rest ERIN 04/12/25 In Process 23:43 Morphine Sulfate PHA 04/12/25 Logged Injection 23:45 Ceftriaxone 1gm/50ml PHA 04/13/25 Logged D5w (Rocephin) 09:00 Ceftriaxone 1gm/50ml PHA 04/12/25 Logged D5w (Rocephin) 23:45 Problem List: (1) Status post hemiarthroplasty of right hip (2) Urinary tract infection (3) Generalized weakness Date of Service: Apr 12, 2025 Billing Provider: NAVEEN HEARD DNP Common Visit Codes: [id number] INP/OBS CARE (HIGH) NAVEEN HEARD DNP Apr 12, 2025 23:55
[2025-04-13] VITALS (8 sets, daily range): BP systolic 107–130; BP diastolic 50–64; PULSE 84–132; RESP 18–20; TEMP 97.6–98.8; O2SAT 95–99
[2025-04-13] MEDS: cefTRIAXone 1GM/50ML D5W 50 ML IV ONE ×2 (00:54→13:45)
[2025-04-13] MEDS: SODIUM CHLORIDE 0.9% 1,000 ML IV SCH (00:57)
[2025-04-13] MEDS: LEVOTHYROXINE SODIUM 88 MCG TAB PO SCH (05:18)
[2025-04-13 07:00] LABS: Alanine Aminotransferase 30 U/L (7-40); Alkaline Phosphatase 79 U/L (46-116); Anion Gap 9 (5-15); BUN/Creatinine Ratio 19.7 (10.0-20.0); Blood Urea Nitrogen 15 mg/dL (9-23); Carbon Dioxide 22 mmol/L (20-31); Glucose 92 mg/dL (74-106); Potassium 4.0 mmol/L (3.5-5.1)
[2025-04-13 07:02] LABS: Albumin 3.2 g/dL (3.2-4.8); Bilirubin, Total 0.6 mg/dL (0.2-1.0); Calcium 8.5 mg/dL (8.7-10.4); Chloride 97 mmol/L (98-107); Sodium 128 mmol/L (136-145); Total Protein 5.4 g/dL (5.7-8.2)
[2025-04-13 07:10] LABS: Hemoglobin 8.2 g/dL (12.2-16.2)
[2025-04-13 07:13] LABS: Hematocrit 23.2 % (36.0-46.0); Mean Corpuscular Hemoglobin 31.1 pg (28.0-32.0); Mean Corpuscular Volume 88.4 fL (80.0-100.0); Nucleated Red Blood Cells % 0.1 %
[2025-04-13] MEDS: METOPROLOL TARTRATE 25 MG TAB PO SCH (08:52)
[2025-04-13] MEDS: ENOXAPARIN SOD 40 MG/0.4 ML SYRINGE SC SCH (08:53)
[2025-04-13] MEDS: LISINOPRIL 20 MG TAB PO SCH (08:53)
[2025-04-13] MEDS: DOCUSATE SOD 100 MG CAP PO PRN (10:46)
[2025-04-13] MEDS ORDERED: ASPI-543 PO (13:31)
--- NOTE | 2025-04-13 13:34 | DVHPN2 ---
Reviewed: Care Plan, H&P, Labs, Medications, Previous Orders, Radiology Changes from previous H/P or p: No Changes Eyes: No Pain, No Vision change, No Conjunctivae inflammation, No Eyelid inflammation, No Other, No Redness ENT: No Ear pain, No Ear discharge, No Nose pain, No Nose discharge, No Nose congestion, No Mouth pain, No Mouth swelling, No Throat pain, No Throat swelling, No Other Cardiovascular: No Chest Pain, No Palpitations, No Orthopnea, No Paroxysmal Noc. Dyspnea, No Edema, No Lt Headedness, No Other Respiratory: No Cough, No Dry, No Shortness of breath, No SOB with excertion, No Wheezing, No Hemoptysis, No Pleuritic Pain, No Sputum, No Other Gastrointestinal: No Nausea, No Vomiting, No Abdominal Pain, No Diarrhea, No Constipation, No Melena, No Hematochezia, No Other Genitourinary: No Dysuria, No Frequency, No Incontinence, No Hematuria, No Retention, No Other Musculoskeletal: other (Right hip pain); No neck pain, No shoulder pain, No arm pain, No back pain, No hand pain, No leg pain, No foot pain Skin: No Rash, No Lesions, No Jaundice, No Bruising, No Other Objective Vitals Vital Signs Date Time Temp Pulse Resp B/P (MAP) Pulse Ox O2 Delivery O2 Flow Rate FiO2 04/13/25 12:56 98.1 103 18 115/50 (71) 95 98.1 04/13/25 08:00 Room Air* 0 21 Intake/Output Intake and Output 04/13/25 07:00 Intake Total 360 ml Output Total 250 ml Balance 110 ml Intake Oral 0 ml IV Total 360 ml Output Urine Total 250 ml Medications Current Medications Medications Dose Ordered Sig/Rafia Route Start Time Stop Time Status Last Admin Dose Admin Lisinopril 20 mg DAILY PO 04/13/25 10:00 04/13/25 08:53 20 MG Levothyroxine Sodium 88 mcg QAM@0600 PO 04/13/25 06:00 04/13/25 05:18 88 MCG Atorvastatin Calcium 20 mg HS PO 04/13/25 22:00 Metoprolol Tartrate 25 mg BID PO 04/13/25 10:00 04/13/25 08:52 25 MG Hydralazine HCl 10 mg Q6HP PRN IV 04/12/25 23:45 Sodium Chloride 1,000 ml @ 60 mls/hr [id number] IV 04/12/25 23:45 04/13/25 00:57 60 MLS/HR Acetaminophen/ Hydrocodone Bitart 1 tab Q4HP PRN PO 04/12/25 23:45 Ondansetron HCl 4 mg Q4HP PRN IV 04/12/25 23:45 Docusate Sodium 100 mg BIDPRN PRN PO 04/12/25 23:45 04/13/25 10:46 100 MG Enoxaparin Sodium 40 mg DAILY SC 04/13/25 10:00 04/13/25 08:53 40 MG Acetaminophen 650 mg Q6HP PRN PO 04/12/25 23:45 Morphine Sulfate 2 mg Q4HPRN PRN IV 04/12/25 23:45 Ceftriaxone Sodium 50 ml @ 100 mls/hr DAILY@0000 IV 04/14/25 00:00 Laboratory Results Laboratory Tests 04/13/25 05:11 Chemistry Test 04/13/25 05:11 Albumin 3.2 g/dL (3.2-4.8) Calcium Level 8.5 mg/dL (8.7-10.4) L Total Protein 5.4 g/dL (5.7-8.2) L LFT Test 04/13/25 05:11 Alanine Aminotransferase (ALT) 30 U/L (7-40) Alkaline Phosphatase 79 U/L (46-116) Aspartate Amino Transferase (AST) 52 U/L (13-40) H Total Bilirubin 0.6 mg/dL (0.2-1.0) HgA1c, TSH Test 04/13/25 00:21 Thyroid Stimulating Hormone (TSH) 3.69 uIU/mL (0.55-4.78) Urinalysis Test 04/12/25 22:45 Urine Color Light-yellow (Yellow) Urine Clarity Turbid (Clear) H Urine pH 7.5 (5.0-9.0) Urine Specific [place] 1.016 (1.001-1.035) Urine Protein 1+ (Negative) H Urine Ketones Negative (Negative) Urine Blood 1+ /uL (Negative) H Urine Nitrite Negative (Negative) Urine Bilirubin Negative (Negative) Urine Urobilinogen Normal mg/dL (Negative) Urine Leukocyte Esterase 3+ /uL (Negative) Urine RBC 11 /hpf (0 - 4) Urine Microscopic WBC 105 /HPF (0-5) H Urine Squamous Epithelial Cells Few /hpf (<5) Urine Bacteria None seen /hpf (None Seen) Urine Glucose Normal mg/dL (Normal) Microbiology Microbiology Date/Time Source Procedure Growth Status 04/12/25 22:45 Urine - Catheterized Urine Culture - Preliminary Resulted Labs and/or images reviewed: Labs reviewed by me, Image(s) reviewed by me Assessment/Plan Assessment/Plan Fracture right [facility] Hyperlipidemia Hypothyroidism Time spent 55 minutes Advanced care planning time 20 mts Plan discussed with: Patient Date of Service: Apr 13, 2025 Billing Provider: YAHIR JEFFRIES MD Common Visit Codes: [id number] INP/OBS CARE(HIGH) Secondary Visit Codes: [id number] CARE PLAN 30 MINUTES YAHIR JEFFRIES MD Apr 13, 2025 13:34
[2025-04-13] MEDS: GLYCERIN ADULT RECTAL SUPP PR ONE (13:45)
--- NOTE | 2025-04-13 17:33 | MEDREC ---
[facility] Intervention Section I [facility] Intervention: Review courses of therapy (Urine culture no growth. Please consider ordering another urinalysis to help with determining whether abx is necessary ) ANNE CATHERINE [facility] RESIDENT Apr 13, 2025 17:33
[2025-04-13] MEDS: FLECAINIDE ACETATE 50 MG TAB PO SCH (21:55)
[2025-04-13] MEDS: HYDROcodone-ACET 5/325MG TAB PO PRN (21:55)
[2025-04-13] MEDS: ATORVASTATIN 20 MG TAB PO SCH (21:55)
[2025-04-14] VITALS (9 sets, daily range): BP systolic 110–144; BP diastolic 56–75; PULSE 77–92; RESP 18–20; TEMP 96.4–98.3; O2SAT 93–98
[2025-04-14] MEDS: cefTRIAXone 1GM/50ML D5W 50 ML IV SCH (00:55)
[2025-04-14] MEDS: LACTULOSE 20Gm/30ML SOLN PO ONE (00:55)
--- NOTE | 2025-04-14 11:54 | DVHPN2 ---
Reviewed: Care Plan, H&P, Labs, Medications, Previous Orders, Radiology Changes from previous H/P or p: No Changes Eyes: No Pain, No Vision change, No Conjunctivae inflammation, No Eyelid inflammation, No Other, No Redness ENT: No Ear pain, No Ear discharge, No Nose pain, No Nose discharge, No Nose congestion, No Mouth pain, No Mouth swelling, No Throat pain, No Throat swelling, No Other Cardiovascular: No Chest Pain, No Palpitations, No Orthopnea, No Paroxysmal Noc. Dyspnea, No Edema, No Lt Headedness, No Other Respiratory: No Cough, No Dry, No Shortness of breath, No SOB with excertion, No Wheezing, No Hemoptysis, No Pleuritic Pain, No Sputum, No Other Gastrointestinal: No Nausea, No Vomiting, No Abdominal Pain, No Diarrhea, No Constipation, No Melena, No Hematochezia, No Other Genitourinary: No Dysuria, No Frequency, No Incontinence, No Hematuria, No Retention, No Other Musculoskeletal: other (Right hip pain); No neck pain, No shoulder pain, No arm pain, No back pain, No hand pain, No leg pain, No foot pain Skin: No Rash, No Lesions, No Jaundice, No Bruising, No Other Objective Vitals Vital Signs Date Time Temp Pulse Resp B/P (MAP) Pulse Ox O2 Delivery O2 Flow Rate FiO2 04/14/25 09:48 () 04/14/25 08:00 Room Air* 0 21 Intake/Output Intake and Output 04/14/25 07:00 Intake Total 630 ml Output Total 2000 ml Balance -1370 ml Intake Oral 580 ml IV Total 50 ml Output Urine Total 2000 ml # Bowel Movements 2 Medications Current Medications Medications Dose Ordered Sig/Rafia Route Start Time Stop Time Status Last Admin Dose Admin Lisinopril 20 mg DAILY PO 04/13/25 10:00 04/14/25 09:20 20 MG Levothyroxine Sodium 88 mcg QAM@0600 PO 04/13/25 06:00 04/14/25 05:55 88 MCG Atorvastatin Calcium 20 mg HS PO 04/13/25 22:00 04/13/25 21:55 20 MG Metoprolol Tartrate 25 mg BID PO 04/13/25 10:00 04/14/25 09:20 25 MG Hydralazine HCl 10 mg Q6HP PRN IV 04/12/25 23:45 Sodium Chloride 1,000 ml @ 60 mls/hr [id number] IV 04/12/25 23:45 04/13/25 21:00 60 MLS/HR Acetaminophen/ Hydrocodone Bitart 1 tab Q4HP PRN PO 04/12/25 23:45 04/14/25 09:19 1 TAB Ondansetron HCl 4 mg Q4HP PRN IV 04/12/25 23:45 Docusate Sodium 100 mg BIDPRN PRN PO 04/12/25 23:45 04/13/25 10:46 100 MG Enoxaparin Sodium 40 mg DAILY SC 04/13/25 10:00 04/14/25 09:19 40 MG Acetaminophen 650 mg Q6HP PRN PO 04/12/25 23:45 Morphine Sulfate 2 mg Q4HPRN PRN IV 04/12/25 23:45 Ceftriaxone Sodium 50 ml @ 100 mls/hr DAILY@0000 IV 04/14/25 00:00 04/14/25 00:55 100 MLS/HR Aspirin 81 mg DAILY PO 04/14/25 10:00 04/14/25 09:20 81 MG Flecainide Acetate 25 mg Q12HR PO 04/13/25 22:00 04/14/25 09:22 25 MG Laboratory Results Laboratory Tests 04/13/25 05:11 Urinalysis Test 04/12/25 22:45 Urine Color Light-yellow (Yellow) Urine Clarity Turbid (Clear) H Urine pH 7.5 (5.0-9.0) Urine Specific [place] 1.016 (1.001-1.035) Urine Protein 1+ (Negative) H Urine Ketones Negative (Negative) Urine Blood 1+ /uL (Negative) H Urine Nitrite Negative (Negative) Urine Bilirubin Negative (Negative) Urine Urobilinogen Normal mg/dL (Negative) Urine Leukocyte Esterase 3+ /uL (Negative) Urine RBC 11 /hpf (0 - 4) Urine Microscopic WBC 105 /HPF (0-5) H Urine Squamous Epithelial Cells Few /hpf (<5) Urine Bacteria None seen /hpf (None Seen) Urine Glucose Normal mg/dL (Normal) Microbiology Microbiology Date/Time Source Procedure Growth Status 04/12/25 22:45 Urine - Catheterized Urine Culture - Preliminary Resulted Labs and/or images reviewed: Labs reviewed by me, Image(s) reviewed by me Assessment/Plan Assessment/Plan Fracture right femoral head status post right hemiarthroplasty at [place]: Consult Placed for orthopedic Dr Gael Tom on Eliquis Hypertension Hyperlipidemia Hypothyroidism Daughter Gilma [phone] bedside and requesting custodial facility placement for rehab, physical therapy recommended custodial facility, pt was in [place] post acute one year ago Physical therapy ordered Time spent 55 minutes Advanced care planning time 20 mts Will DC to custodial facility on Friday Plan discussed with: Patient My Orders Orders - YAHIR JEFFRIES MD Procedure Category Date Status Time * Dietary Consult CONS 04/13/25 Transmitted 13:33 Aspirin Tablet PHA 04/14/25 In Process 10:00 Flecainide Tablet PHA 04/13/25 In Process (Tambocor Tablet) 22:00 Pt Request For Service PT 04/13/25 Logged 16:51 Date of Service: Apr 14, 2025 Billing Provider: YAHIR JEFFRIES MD Common Visit Codes: [id number] INP/OBS CARE(HIGH) YAHIR JEFFRIES MD Apr 14, 2025 11:54
[2025-04-14] MEDS: FLORASTOR (S. BOULARDII) 250 MG CAP PO SCH (12:30)
--- NOTE | 2025-04-14 14:55 | DVH ---
CLINICAL INDICATION: Status post ORIF TECHNIQUE: 1 radiographic views of the bipolar right hip prosthesis in place were obtained. Comparison: CT PELVIS WO CONTRAST on DOS: 04/04/25, XY PELVIS AP on DOS: 04/03/25, XY R FEMUR XRAY on DOS : 04/03/25 FINDINGS/IMPRESSION: Bipolar right hip prosthesis in place with cerclage wires visualized. Skin closure agapito also visua lized. HS:Y
[2025-04-14 16:03] LABS: Triglycerides 79 mg/dL (< 150)
[2025-04-14 16:05] LABS: Cholesterol 109 mg/dL (< 200)
[2025-04-14 16:06] LABS: HDL Cholesterol 37 mg/dL (40-59)
[2025-04-14] MEDS: Ensure HIGH Protein Chocolate 8oz Bottle PO SCH (18:20)
[2025-04-14] MEDS: ACETAMINOPHEN 325 MG TAB PO PRN (21:23)
[2025-04-15] VITALS (10 sets, daily range): BP systolic 99–160; BP diastolic 34–77; PULSE 74–119; RESP 16–18; TEMP 96.3–98.5; O2SAT 18–97
[2025-04-15] MEDS: hydrALAZINE HCL 20 MG/ML VL IV PRN (00:29)
--- NOTE | 2025-04-15 06:02 | DVHPN2 ---
Progress Note Date Seen: Apr 15, 2025 Medical Necessity Reason Pt with a Central, PICC or Fol: No Subjective Patient reports: No new complaints, Feels better Objective vital signs Vital Sign Date Time Temp Pulse Resp B/P (MAP) Pulse Ox O2 Delivery O2 Flow Rate FiO2 04/15/25 05:00 97.6 77 16 147/69 (95) 96 97.6 04/14/25 20:00 Room Air* 0 21 Total Intake and Output 04/14/25 04/14/25 04/15/25 15:00 23:00 07:00 Intake Total 600 ml 480 ml 480 ml Output Total 500 ml 1150 ml Balance 600 ml -20 ml -670 ml medications Current Medications Medications Dose Ordered Sig/Rafia Route Start Time Stop Time Status Last Admin Dose Admin Lisinopril 20 mg DAILY PO 04/13/25 10:00 04/14/25 09:20 20 MG Levothyroxine Sodium 88 mcg QAM@0600 PO 04/13/25 06:00 04/15/25 05:21 88 MCG Atorvastatin Calcium 20 mg HS PO 04/13/25 22:00 04/14/25 21:24 20 MG Metoprolol Tartrate 25 mg BID PO 04/13/25 10:00 04/14/25 21:24 25 MG Hydralazine HCl 10 mg Q6HP PRN IV 04/12/25 23:45 04/15/25 00:29 10 MG Sodium Chloride 1,000 ml @ 60 mls/hr [id number] IV 04/12/25 23:45 04/13/25 21:00 60 MLS/HR Acetaminophen/ Hydrocodone Bitart 1 tab Q4HP PRN PO 04/12/25 23:45 04/14/25 09:19 1 TAB Ondansetron HCl 4 mg Q4HP PRN IV 04/12/25 23:45 Docusate Sodium 100 mg BIDPRN PRN PO 04/12/25 23:45 04/13/25 10:46 100 MG Enoxaparin Sodium 40 mg DAILY SC 04/13/25 10:00 04/14/25 09:19 40 MG Acetaminophen 650 mg Q6HP PRN PO 04/12/25 23:45 04/14/25 21:23 650 MG Morphine Sulfate 2 mg Q4HPRN PRN IV 04/12/25 23:45 Ceftriaxone Sodium 50 ml @ 100 mls/hr DAILY@0000 IV 04/14/25 00:00 04/15/25 00:29 100 MLS/HR Aspirin 81 mg DAILY PO 04/14/25 10:00 04/14/25 09:20 81 MG Flecainide Acetate 25 mg Q12HR PO 04/13/25 22:00 04/14/25 21:23 25 MG Enteral Nutritional Formula 240 ml TIDWM PO 04/14/25 18:00 04/14/25 18:20 240 ML Saccharomyces Boulardii 250 mg DAILY PO 04/14/25 12:30 04/14/25 12:30 250 MG Examination: GENERAL:Normal, MSK:Abnormal laboratory and microbiology Laboratory Tests 04/13/25 05:11 Test 04/13/25 05:11 Range/Units Serum Glucose 92 74-106 mg/dL Microbiology Date/Time Source Procedure Growth Status 04/12/25 22:45 Urine - Catheterized Urine Culture - Preliminary Resulted Problem List/Assessment/Plan Problem List/Assessment/Plan sp Right hip kristofer at [facility] 1. WBAT with walker 2. PT 3. pain control 4. incentive spirometer 5. fu in [facility]o clinic in 2 weeks Plan discussed with: Patient Dietary Evaluation Review Comments: 1. Offer Ensure HP PO supplement BID in chocolate flavor. 2. encourage high fiber diet and fluids for bowel motility 3. encourage working with PT for mobility 4. check lipid profile for needs of lipitor? Expected Outcomes/Goals: recover from hip surgery gradual wt loss as activities increases. MARI NESS MD Apr 15, 2025 06:02
--- NOTE | 2025-04-15 13:00 | DVHPN2 ---
Subjective The patient is seen and examined at bedside. Complain of pain. Reviewed: Care Plan, H&P, Labs, Medications, Previous Orders, Radiology Changes from previous H/P or p: No Changes Eyes: No Pain, No Vision change, No Conjunctivae inflammation, No Eyelid inflammation, No Other, No Redness ENT: No Ear pain, No Ear discharge, No Nose pain, No Nose discharge, No Nose congestion, No Mouth pain, No Mouth swelling, No Throat pain, No Throat swelling, No Other Cardiovascular: No Chest Pain, No Palpitations, No Orthopnea, No Paroxysmal Noc. Dyspnea, No Edema, No Lt Headedness, No Other Respiratory: No Cough, No Dry, No Shortness of breath, No SOB with excertion, No Wheezing, No Hemoptysis, No Pleuritic Pain, No Sputum, No Other Gastrointestinal: No Nausea, No Vomiting, No Abdominal Pain, No Diarrhea, No Constipation, No Melena, No Hematochezia, No Other Genitourinary: No Dysuria, No Frequency, No Incontinence, No Hematuria, No Retention, No Other Musculoskeletal: other (Right hip pain); No neck pain, No shoulder pain, No arm pain, No back pain, No hand pain, No leg pain, No foot pain Skin: No Rash, No Lesions, No Jaundice, No Bruising, No Other Objective Vitals Vital Signs Date Time Temp Pulse Resp B/P (MAP) Pulse Ox O2 Delivery O2 Flow Rate FiO2 04/15/25 10:20 109 99/34 (55) 95 04/15/25 08:49 18 04/15/25 05:00 97.6 97.6 04/14/25 20:00 Room Air* 0 21 Intake/Output Intake and Output 04/15/25 07:00 Intake Total 1560 ml Output Total 1650 ml Balance -90 ml Intake Oral 960 ml IV Total 600 ml Output Urine Total 1650 ml # Bowel Movements 7 General Appearance: Alert, Cooperative, No acute distress HEENT: Atraumatic, PERRLA, EOMI, Mucous membr. moist/pink Neck: Supple Lungs: Clear to auscultation, Normal air movement Cardiovascular: Regular rate, Normal S1, Normal S2, No murmurs, Gallops, Rubs Abdomen: Normal bowel sounds, Soft, No tenderness Neuro: Cranial nerves 3-12 NL Psych/Mental Status: Mental status NL Medications Current Medications Medications Dose Ordered Sig/Rafia Route Start Time Stop Time Status Last Admin Dose Admin Lisinopril 20 mg DAILY PO 04/13/25 10:00 04/14/25 09:20 20 MG Levothyroxine Sodium 88 mcg QAM@0600 PO 04/13/25 06:00 04/15/25 05:21 88 MCG Atorvastatin Calcium 20 mg HS PO 04/13/25 22:00 04/14/25 21:24 20 MG Metoprolol Tartrate 25 mg BID PO 04/13/25 10:00 04/14/25 21:24 25 MG Hydralazine HCl 10 mg Q6HP PRN IV 04/12/25 23:45 04/15/25 08:35 10 MG Sodium Chloride 1,000 ml @ 60 mls/hr [id number] IV 04/12/25 23:45 04/15/25 11:01 60 MLS/HR Acetaminophen/ Hydrocodone Bitart 1 tab Q4HP PRN PO 04/12/25 23:45 04/14/25 09:19 1 TAB Ondansetron HCl 4 mg Q4HP PRN IV 04/12/25 23:45 Docusate Sodium 100 mg BIDPRN PRN PO 04/12/25 23:45 04/13/25 10:46 100 MG Enoxaparin Sodium 40 mg DAILY SC 04/13/25 10:00 04/15/25 10:51 40 MG Acetaminophen 650 mg Q6HP PRN PO 04/12/25 23:45 04/15/25 08:42 650 MG Morphine Sulfate 2 mg Q4HPRN PRN IV 04/12/25 23:45 Ceftriaxone Sodium 50 ml @ 100 mls/hr DAILY@0000 IV 04/14/25 00:00 04/15/25 00:29 100 MLS/HR Aspirin 81 mg DAILY PO 04/14/25 10:00 04/15/25 10:46 81 MG Flecainide Acetate 25 mg Q12HR PO 04/13/25 22:00 04/15/25 10:47 25 MG Enteral Nutritional Formula 240 ml TIDWM PO 04/14/25 18:00 04/14/25 18:20 240 ML Saccharomyces Boulardii 250 mg DAILY PO 04/14/25 12:30 04/15/25 10:49 250 MG Laboratory Results Laboratory Tests 04/13/25 05:11 Lipid panel Test 04/14/25 14:35 Cholesterol Level 109 mg/dL (< 200) HDL Cholesterol 37 mg/dL (40-59) L Triglycerides Level 79 mg/dL (< 150) Urinalysis Test 04/12/25 22:45 Urine Color Light-yellow (Yellow) Urine Clarity Turbid (Clear) H Urine pH 7.5 (5.0-9.0) Urine Specific [place] 1.016 (1.001-1.035) Urine Protein 1+ (Negative) H Urine Ketones Negative (Negative) Urine Blood 1+ /uL (Negative) H Urine Nitrite Negative (Negative) Urine Bilirubin Negative (Negative) Urine Urobilinogen Normal mg/dL (Negative) Urine Leukocyte Esterase 3+ /uL (Negative) Urine RBC 11 /hpf (0 - 4) Urine Microscopic WBC 105 /HPF (0-5) H Urine Squamous Epithelial Cells Few /hpf (<5) Urine Bacteria None seen /hpf (None Seen) Urine Glucose Normal mg/dL (Normal) Microbiology Microbiology Date/Time Source Procedure Growth Status 04/12/25 22:45 Urine - Catheterized Urine Culture - Final Complete Labs and/or images reviewed: Labs reviewed by me Assessment/Plan Assessment/Plan Fracture right femoral head status post right hemiarthroplasty at [place]: Consult Placed for orthopedic Dr Gael Tom on Eliquis Hypertension Hyperlipidemia Hypothyroidism Daughter Gilma [phone] bedside and requesting correction facility placement for rehab, physical therapy recommended correction facility, pt was in [place] post acute one year ago Physical therapy ordered Waiting for correction home facility placement Plan discussed with: Patient Date of Service: Apr 15, 2025 Billing Provider: JAY FERMIN MD Common Visit Codes: [id number] INP/OBS CARE(HIGH) JAY FERMIN MD Apr 15, 2025 13:00
[2025-04-16 01:00] VITALS: BP 116/85; PULSE 107; RESP 16; TEMP 97.4; O2SAT 97
[2025-04-16 05:00] VITALS: BP 148/84; PULSE 105; RESP 16; TEMP 98.2; O2SAT 95
[2025-04-16 09:00] VITALS: BP 140/64; PULSE 131; RESP 18; TEMP 96.4; O2SAT 97
--- NOTE | 2025-04-16 09:10 | DVHPN2 ---
Reviewed: Care Plan, H&P, Labs, Medications, Previous Orders, Radiology Changes from previous H/P or p: No Changes Eyes: No Pain, No Vision change, No Conjunctivae inflammation, No Eyelid inflammation, No Other, No Redness ENT: No Ear pain, No Ear discharge, No Nose pain, No Nose discharge, No Nose congestion, No Mouth pain, No Mouth swelling, No Throat pain, No Throat swelling, No Other Cardiovascular: No Chest Pain, No Palpitations, No Orthopnea, No Paroxysmal Noc. Dyspnea, No Edema, No Lt Headedness, No Other Respiratory: No Cough, No Dry, No Shortness of breath, No SOB with excertion, No Wheezing, No Hemoptysis, No Pleuritic Pain, No Sputum, No Other Gastrointestinal: No Nausea, No Vomiting, No Abdominal Pain, No Diarrhea, No Constipation, No Melena, No Hematochezia, No Other Genitourinary: No Dysuria, No Frequency, No Incontinence, No Hematuria, No Retention, No Other Musculoskeletal: other (Right hip pain); No neck pain, No shoulder pain, No arm pain, No back pain, No hand pain, No leg pain, No foot pain Skin: No Rash, No Lesions, No Jaundice, No Bruising, No Other Objective Vitals Vital Signs Date Time Temp Pulse Resp B/P (MAP) Pulse Ox O2 Delivery O2 Flow Rate FiO2 04/16/25 05:52 156/86 04/16/25 05:00 98.2 105 16 95 98.2 04/15/25 20:00 Room Air* 0 21 Intake/Output Intake and Output 04/16/25 07:00 Intake Total 1300 ml Output Total 1750 ml Balance -450 ml Intake Oral 1250 ml IV Total 50 ml Output Urine Total 1750 ml # Bowel Movements 7 Medications Current Medications Medications Dose Ordered Sig/Rafia Route Start Time Stop Time Status Last Admin Dose Admin Lisinopril 20 mg DAILY PO 04/13/25 10:00 04/14/25 09:20 20 MG Levothyroxine Sodium 88 mcg QAM@0600 PO 04/13/25 06:00 04/16/25 05:51 88 MCG Atorvastatin Calcium 20 mg HS PO 04/13/25 22:00 04/15/25 21:38 20 MG Metoprolol Tartrate 25 mg BID PO 04/13/25 10:00 04/15/25 21:38 25 MG Hydralazine HCl 10 mg Q6HP PRN IV 04/12/25 23:45 04/16/25 05:52 10 MG Sodium Chloride 1,000 ml @ 60 mls/hr [id number] IV 04/12/25 23:45 04/15/25 11:01 60 MLS/HR Acetaminophen/ Hydrocodone Bitart 1 tab Q4HP PRN PO 04/12/25 23:45 04/14/25 09:19 1 TAB Ondansetron HCl 4 mg Q4HP PRN IV 04/12/25 23:45 Docusate Sodium 100 mg BIDPRN PRN PO 04/12/25 23:45 04/13/25 10:46 100 MG Enoxaparin Sodium 40 mg DAILY SC 04/13/25 10:00 04/15/25 10:51 40 MG Acetaminophen 650 mg Q6HP PRN PO 04/12/25 23:45 04/15/25 21:38 650 MG Morphine Sulfate 2 mg Q4HPRN PRN IV 04/12/25 23:45 Ceftriaxone Sodium 50 ml @ 100 mls/hr DAILY@0000 IV 04/14/25 00:00 04/15/25 23:42 100 MLS/HR Aspirin 81 mg DAILY PO 04/14/25 10:00 04/15/25 10:46 81 MG Flecainide Acetate 25 mg Q12HR PO 04/13/25 22:00 04/15/25 21:38 25 MG Enteral Nutritional Formula 240 ml TIDWM PO 04/14/25 18:00 04/15/25 19:57 240 ML Saccharomyces Boulardii 250 mg DAILY PO 04/14/25 12:30 04/15/25 10:49 250 MG Laboratory Results Laboratory Tests 04/13/25 05:11 Urinalysis Test 04/12/25 22:45 Urine Color Light-yellow (Yellow) Urine Clarity Turbid (Clear) H Urine pH 7.5 (5.0-9.0) Urine Specific [place] 1.016 (1.001-1.035) Urine Protein 1+ (Negative) H Urine Ketones Negative (Negative) Urine Blood 1+ /uL (Negative) H Urine Nitrite Negative (Negative) Urine Bilirubin Negative (Negative) Urine Urobilinogen Normal mg/dL (Negative) Urine Leukocyte Esterase 3+ /uL (Negative) Urine RBC 11 /hpf (0 - 4) Urine Microscopic WBC 105 /HPF (0-5) H Urine Squamous Epithelial Cells Few /hpf (<5) Urine Bacteria None seen /hpf (None Seen) Urine Glucose Normal mg/dL (Normal) Microbiology Microbiology Date/Time Source Procedure Growth Status 04/12/25 22:45 Urine - Catheterized Urine Culture - Final Complete Labs and/or images reviewed: Labs reviewed by me, Image(s) reviewed by me Assessment/Plan Assessment/Plan Fracture right femoral head status post right hemiarthroplasty at [place]: Consult Placed for orthopedic Dr Mayo advised pain management weight-bearing as tolerated and follow up with the ortho in two weeks AFib on Eliquis Hypertension Hyperlipidemia Hypothyroidism Daughter Gilma [phone] bedside and requesting residential facility placement for rehab, physical therapy recommended residential facility, pt was in [place] post acute one year ago Physical therapy ordered Time spent 55 minutes Advanced care planning time 20 mts Plan discussed with: Patient Date of Service: Apr 16, 2025 Billing Provider: YAHIR JEFFRIES MD Common Visit Codes: [id number] INP/OBS CARE(HIGH) YAHIR JEFFRIES MD Apr 16, 2025 09:10
[2025-04-16 13:00] VITALS: BP 124/60; PULSE 104; RESP 18; TEMP 96.3; O2SAT 98
[2025-04-16 16:44] VITALS: BP 137/72; PULSE 84; RESP 18; TEMP 96.3; O2SAT 98
[2025-04-16 21:00] VITALS: BP 133/82; PULSE 79; RESP 16; TEMP 98.1; O2SAT 100
[2025-04-17 01:00] VITALS: BP 121/64; PULSE 73; RESP 18; TEMP 98.1; O2SAT 98
[2025-04-17 05:00] VITALS: BP 145/53; PULSE 74; RESP 18; TEMP 98; O2SAT 97
--- NOTE | 2025-04-17 08:49 | MEDREC ---
[facility] Intervention Section I [facility] Intervention: Review courses of therapy (PLEASE CONSIDER D/C ANTIBIOTIC IN ABSENCE OF BACTERIAL INFECTION) ANTHONY CASTILLO PHARMACIST Apr 17, 2025 08:49
[2025-04-17 09:00] VITALS: BP 155/69; PULSE 78; RESP 18; TEMP 97.3; O2SAT 97
--- NOTE | 2025-04-17 11:32 | DVHPN2 ---
Reviewed: Care Plan, H&P, Labs, Medications, Previous Orders, Radiology Changes from previous H/P or p: No Changes Eyes: No Pain, No Vision change, No Conjunctivae inflammation, No Eyelid inflammation, No Other, No Redness ENT: No Ear pain, No Ear discharge, No Nose pain, No Nose discharge, No Nose congestion, No Mouth pain, No Mouth swelling, No Throat pain, No Throat swelling, No Other Cardiovascular: No Chest Pain, No Palpitations, No Orthopnea, No Paroxysmal Noc. Dyspnea, No Edema, No Lt Headedness, No Other Respiratory: No Cough, No Dry, No Shortness of breath, No SOB with excertion, No Wheezing, No Hemoptysis, No Pleuritic Pain, No Sputum, No Other Gastrointestinal: No Nausea, No Vomiting, No Abdominal Pain, No Diarrhea, No Constipation, No Melena, No Hematochezia, No Other Genitourinary: No Dysuria, No Frequency, No Incontinence, No Hematuria, No Retention, No Other Musculoskeletal: other (Right hip pain); No neck pain, No shoulder pain, No arm pain, No back pain, No hand pain, No leg pain, No foot pain Skin: No Rash, No Lesions, No Jaundice, No Bruising, No Other Objective Vitals Vital Signs Date Time Temp Pulse Resp B/P (MAP) Pulse Ox O2 Delivery O2 Flow Rate FiO2 04/17/25 09:28 130/64 04/17/25 09:27 82 04/17/25 09:00 97.3 18 97 97.3 04/17/25 08:00 Room Air* 0 21 Intake/Output Intake and Output 04/17/25 07:00 Intake Total 1116 ml Output Total 900 ml Balance 216 ml Intake Oral 1116 ml Output Urine Total 900 ml # Bowel Movements 4 Medications Current Medications Medications Dose Ordered Sig/Rafia Route Start Time Stop Time Status Last Admin Dose Admin Lisinopril 20 mg DAILY PO 04/13/25 10:00 04/17/25 09:28 20 MG Levothyroxine Sodium 88 mcg QAM@0600 PO 04/13/25 06:00 04/17/25 05:30 88 MCG Atorvastatin Calcium 20 mg HS PO 04/13/25 22:00 04/16/25 21:27 20 MG Metoprolol Tartrate 25 mg BID PO 04/13/25 10:00 04/17/25 09:27 25 MG Hydralazine HCl 10 mg Q6HP PRN IV 04/12/25 23:45 04/16/25 05:52 10 MG Sodium Chloride 1,000 ml @ 60 mls/hr [id number] IV 04/12/25 23:45 04/15/25 11:01 60 MLS/HR Acetaminophen/ Hydrocodone Bitart 1 tab Q4HP PRN PO 04/12/25 23:45 04/14/25 09:19 1 TAB Ondansetron HCl 4 mg Q4HP PRN IV 04/12/25 23:45 Docusate Sodium 100 mg BIDPRN PRN PO 04/12/25 23:45 04/13/25 10:46 100 MG Enoxaparin Sodium 40 mg DAILY SC 04/13/25 10:00 04/17/25 09:29 40 MG Acetaminophen 650 mg Q6HP PRN PO 04/12/25 23:45 04/15/25 21:38 650 MG Morphine Sulfate 2 mg Q4HPRN PRN IV 04/12/25 23:45 Ceftriaxone Sodium 50 ml @ 100 mls/hr DAILY@0000 IV 04/14/25 00:00 04/17/25 00:00 100 MLS/HR Aspirin 81 mg DAILY PO 04/14/25 10:00 04/17/25 09:28 81 MG Flecainide Acetate 25 mg Q12HR PO 04/13/25 22:00 04/17/25 09:28 25 MG Enteral Nutritional Formula 240 ml TIDWM PO 04/14/25 18:00 04/17/25 09:27 240 ML Saccharomyces Boulardii 250 mg DAILY PO 04/14/25 12:30 04/17/25 09:29 250 MG Laboratory Results Laboratory Tests 04/13/25 05:11 Urinalysis Test 04/12/25 22:45 Urine Color Light-yellow (Yellow) Urine Clarity Turbid (Clear) H Urine pH 7.5 (5.0-9.0) Urine Specific [place] 1.016 (1.001-1.035) Urine Protein 1+ (Negative) H Urine Ketones Negative (Negative) Urine Blood 1+ /uL (Negative) H Urine Nitrite Negative (Negative) Urine Bilirubin Negative (Negative) Urine Urobilinogen Normal mg/dL (Negative) Urine Leukocyte Esterase 3+ /uL (Negative) Urine RBC 11 /hpf (0 - 4) Urine Microscopic WBC 105 /HPF (0-5) H Urine Squamous Epithelial Cells Few /hpf (<5) Urine Bacteria None seen /hpf (None Seen) Urine Glucose Normal mg/dL (Normal) Microbiology Microbiology Date/Time Source Procedure Growth Status 04/12/25 22:45 Urine - Catheterized Urine Culture - Final Complete Labs and/or images reviewed: Labs reviewed by me, Image(s) reviewed by me Assessment/Plan Assessment/Plan Fracture right femoral head status post right hemiarthroplasty at [place]: Consult Placed for orthopedic Dr Mayo advised pain management weight-bearing as tolerated and follow up with the ortho in two weeks AFib on Eliquis Hypertension Hyperlipidemia Hypothyroidism UTI: Treated with Rocephin, urine cultures neg Daughter Gilma [phone] bedside and requesting senior care facility placement for rehab, physical therapy recommended senior care facility, pt was in [place] post acute one year ago Time spent 50 minutes Advanced care planning time 20 mts Plan discussed with: Patient Date of Service: Apr 17, 2025 Billing Provider: YAHIR JEFFRIES MD Common Visit Codes: [id number] INP/OBS CARE(HIGH) YAHIR JEFFRIES MD Apr 17, 2025 11:32
[2025-04-17 12:48] VITALS: BP 138/62; PULSE 61; RESP 20; TEMP 96.9; O2SAT 98
[2025-04-17 17:00] VITALS: BP 133/73; PULSE 75; RESP 18; TEMP 96.6; O2SAT 97
[2025-04-17 21:00] VITALS: BP 142/68; PULSE 74; RESP 16; TEMP 97.2; O2SAT 96
[2025-04-17] MEDS: FLECAINIDE ACETATE 50 MG TAB PO SCH (22:20)
[2025-04-17] MEDS: ATORVASTATIN 20 MG TAB PO SCH (22:20)
[2025-04-17] MEDS: METOPROLOL TARTRATE 25 MG TAB PO SCH (22:20)
[2025-04-18] VITALS (8 sets, daily range): BP systolic 123–144; BP diastolic 63–75; PULSE 64–81; RESP 12–18; TEMP 36.7; O2SAT 95–97
[2025-04-18] MEDS: cefTRIAXone 1GM/50ML D5W 50 ML IV SCH (01:08)
[2025-04-18] MEDS: LEVOTHYROXINE SODIUM 88 MCG TAB PO SCH (05:36)
[2025-04-18 10:00] LABS: Urine Protein, UAD Negative (Negative)
[2025-04-18 10:38] LABS: COVID19 ANTIGEN SOFIA FIA NEGATIVE (NEGATIVE)
[2025-04-18] MEDS ORDERED: ACETAMINOPHEN 325 MG TAB PO PRN (11:00)
[2025-04-18] MEDS ORDERED: HYDROcodone-ACET 5/325MG TAB PO PRN (11:00)
[2025-04-18] MEDS ORDERED: hydrALAZINE HCL 20 MG/ML VL IV PRN (11:00)
[2025-04-18] MEDS ORDERED: MORPHINE SULFATE INJ 2 MG/ml SYRG IV PRN (11:00)
[2025-04-18] MEDS: SODIUM CHLORIDE 0.9% 1,000 ML IV SCH (11:00)
[2025-04-18] MEDS ORDERED: DOCUSATE SOD 100 MG CAP PO PRN (11:00)
[2025-04-18] MEDS ORDERED: ONDANSETRON HCL 4 MG/2 ML VIAL IV PRN (11:00)
[2025-04-18] MEDS ORDERED: CEFA1TAB PO (11:19)
--- NOTE | 2025-04-18 11:47 | DVHPN2 ---
Reviewed: Care Plan, H&P, Labs, Medications, Previous Orders, Radiology Changes from previous H/P or p: No Changes Eyes: No Pain, No Vision change, No Conjunctivae inflammation, No Eyelid inflammation, No Other, No Redness ENT: No Ear pain, No Ear discharge, No Nose pain, No Nose discharge, No Nose congestion, No Mouth pain, No Mouth swelling, No Throat pain, No Throat swelling, No Other Cardiovascular: No Chest Pain, No Palpitations, No Orthopnea, No Paroxysmal Noc. Dyspnea, No Edema, No Lt Headedness, No Other Respiratory: No Cough, No Dry, No Shortness of breath, No SOB with excertion, No Wheezing, No Hemoptysis, No Pleuritic Pain, No Sputum, No Other Gastrointestinal: No Nausea, No Vomiting, No Abdominal Pain, No Diarrhea, No Constipation, No Melena, No Hematochezia, No Other Genitourinary: No Dysuria, No Frequency, No Incontinence, No Hematuria, No Retention, No Other Musculoskeletal: other (Right hip pain); No neck pain, No shoulder pain, No arm pain, No back pain, No hand pain, No leg pain, No foot pain Skin: No Rash, No Lesions, No Jaundice, No Bruising, No Other Objective Vitals Vital Signs Date Time Temp Pulse Resp B/P (MAP) Pulse Ox O2 Delivery O2 Flow Rate FiO2 04/18/25 09:00 98.0 75 16 131/75 (93) 97 98.0 04/17/25 20:00 Room Air* 0 21 Intake/Output Intake and Output 04/18/25 07:00 Intake Total 1586.1 ml Output Total 1300 ml Balance 286.1 ml Intake Oral 1290 ml IV Total 296.1 ml Output Urine Total 1300 ml # Bowel Movements 2 General Appearance: Alert, Cooperative, No acute distress HEENT: Atraumatic, PERRLA, EOMI, Mucous membr. moist/pink Neck: Supple Lungs: Clear to auscultation, Normal air movement Cardiovascular: Regular rate, Normal S1, Normal S2, No murmurs, Gallops, Rubs Abdomen: Normal bowel sounds, Soft, No tenderness Neuro: Cranial nerves 3-12 NL Psych/Mental Status: Mental status NL Medications Current Medications Medications Dose Ordered Sig/Rafia Route Start Time Stop Time Status Last Admin Dose Admin Ceftriaxone Sodium 50 ml @ 100 mls/hr DAILY@0000 IV 04/18/25 00:00 04/18/25 01:08 100 MLS/HR Lisinopril 20 mg DAILY PO 04/19/25 10:00 Hydralazine HCl 10 mg Q6HP PRN IV 04/18/25 11:00 Sodium Chloride 1,000 ml @ 60 mls/hr [id number] IV 04/18/25 11:00 Acetaminophen/ Hydrocodone Bitart 1 tab Q4HP PRN PO 04/18/25 11:00 Ondansetron HCl 4 mg Q4HP PRN IV 04/18/25 11:00 Docusate Sodium 100 mg BIDPRN PRN PO 04/18/25 11:00 Enoxaparin Sodium 40 mg DAILY SC 04/19/25 10:00 Acetaminophen 650 mg Q6HP PRN PO 04/18/25 11:00 Morphine Sulfate 2 mg Q4HPRN PRN IV 04/18/25 11:00 Aspirin 81 mg DAILY PO 04/19/25 10:00 Enteral Nutritional Formula 240 ml TIDWM PO 04/18/25 12:00 Saccharomyces Boulardii 250 mg DAILY PO 04/19/25 10:00 Atorvastatin Calcium 20 mg HS PO 04/18/25 22:00 Flecainide Acetate 25 mg Q12HR PO 04/18/25 22:00 Metoprolol Tartrate 25 mg BID PO 04/18/25 22:00 Levothyroxine Sodium 88 mcg QAM@0600 PO 04/19/25 06:00 Laboratory Results Laboratory Tests 04/13/25 05:11 Urinalysis Test 04/18/25 09:30 Urine Color Light-yellow (Yellow) Urine Clarity Clear (Clear) Urine pH 7.5 (5.0-9.0) Urine Specific [place] 1.014 (1.001-1.035) Urine Protein Negative (Negative) Urine Ketones Negative (Negative) Urine Blood Negative /uL (Negative) Urine Nitrite Negative (Negative) Urine Bilirubin Negative (Negative) Urine Urobilinogen Normal mg/dL (Negative) Urine Leukocyte Esterase Negative /uL (Negative) Urine RBC 3 /hpf (0 - 4) Urine Microscopic WBC 4 /HPF (0-5) Urine Squamous Epithelial Cells Few /hpf (<5) Urine Bacteria None seen /hpf (None Seen) Urine Glucose Normal mg/dL (Normal) Microbiology Microbiology Date/Time Source Procedure Growth Status 04/12/25 22:45 Urine - Catheterized Urine Culture - Final Complete Labs and/or images reviewed: Labs reviewed by me, Image(s) reviewed by me Assessment/Plan Assessment/Plan Fracture right femoral head status post right hemiarthroplasty at [place]: Consult Placed for orthopedic Dr Mayo advised pain management weight-bearing as tolerated and follow up with the ortho in two weeks AFib on Eliquis Hypertension Hyperlipidemia Hypothyroidism UTI: Treated with Rocephin, urine cultures neg Daughter Gilma [phone] bedside and requesting alf facility placement for rehab, physical therapy recommended alf facility, pt was in [place] post acute one year ago, discharged to [place] post acute Time spent 50 minutes Advanced care planning time 20 mts Plan discussed with: Patient My Orders Orders - YAHIR JEFFRIES MD Procedure Category Date Status Time Cardiac DIET 04/17/25 Transmitted Diet-2gna,Lofat,Lochol Dinner Urine Bacterial MIGUEL 04/18/25 In Process Culture 09:52 Aspirin Tablet PHA 04/19/25 In Process 10:00 Nutritional PHA 04/18/25 In Process Supplements (Ensure 12:00 Florastor (S. PHA 04/19/25 In Process Boulardii) (Florastor) 10:00 Flecainide Tablet PHA 04/18/25 In Process (Tambocor Tablet) 22:00 Date of Service: Apr 18, 2025 Billing Provider: YAHIR JEFFRIES MD Common Visit Codes: [id number] INP/OBS CARE(HIGH) YAHIR JEFFRIES MD Apr 18, 2025 11:47
--- NOTE | 2025-04-18 11:54 | DVHDS2 ---
Discharge Summary Date of Admission Apr 12, 2025 at 19:38 Date of Discharge: Apr 18, 2025 Admitting Diagnosis status Post Right hip surgery Wounds: Right hip surgery Labs/Diagnostic Data: Laboratory Results Test 04/18/25 10:00 04/18/25 09:30 04/14/25 14:35 04/13/25 05:11 SARS-CoV-2 Antigen (Rapid) Negative (NEGATIVE) Urine Color Light-yellow (Yellow) Urine Clarity Clear (Clear) Urine pH 7.5 (5.0-9.0) Urine Specific [place] 1.014 (1.001-1.035) Urine Protein Negative (Negative) Urine Ketones Negative (Negative) Urine Blood Negative /uL (Negative) Urine Nitrite Negative (Negative) Urine Bilirubin Negative (Negative) Urine Urobilinogen Normal mg/dL (Negative) Urine Leukocyte Esterase Negative /uL (Negative) Urine RBC 3 /hpf (0 - 4) Urine Microscopic WBC 4 /HPF (0-5) Urine Squamous Epithelial Cells Few /hpf (<5) Urine Bacteria None seen /hpf (None Seen) Urine Glucose Normal mg/dL (Normal) Triglycerides Level 79 mg/dL (< 150) Cholesterol Level 109 mg/dL (< 200) LDL Cholesterol 57 mg/dL (< 100) HDL Cholesterol 37 mg/dL (40-59) White Blood Count 9.8 10^3/uL (4.4-10.8) Red Blood Count 2.63 10^6/uL (4.0-5.20) Hemoglobin 8.2 g/dL (12.2-16.2) Hematocrit 23.2 % (36.0-46.0) Mean Corpuscular Volume 88.4 fL (80.0-100.0) Mean Corpuscular Hemoglobin 31.1 pg (28.0-32.0) Mean Corpuscular Hemoglobin Concent 35.2 g/dL (32.0-36.0) Red Cell Distribution Width 13.2 % (11.8-14.3) Platelet Count 323 10^3/uL (140-450) Mean Platelet Volume 7.5 fL (6.9-10.8) Neutrophils (%) (Auto) 70.7 % (37.0-80.0) Lymphocytes (%) (Auto) 14.3 % (10.0-50.0) Monocytes (%) (Auto) 14.2 % (0.0-12.0) Eosinophils (%) (Auto) 0.6 % (0.0-7.0) Basophils (%) (Auto) 0.2 % (0.0-2.0) Neutrophils # (Auto) 6.9 10 ^3/uL (1.6-8.6) Lymphocytes # (Auto) 1.4 10 ^3/uL (0.4-5.4) Monocytes # (Auto) 1.4 10 ^3/uL (0-1.3) Eosinophils # (Auto) 0.1 10 ^3/uL (0-0.8) Basophils # (Auto) 0 10 ^3/uL (0-0.2) Nucleated Red Blood Cells 0.1 % Sodium Level 128 mmol/L (136-145) Potassium Level 4.0 mmol/L (3.5-5.1) Chloride Level 97 mmol/L (98-107) Carbon Dioxide Level 22 mmol/L (20-31) Anion Gap 9 (5-15) Blood Urea Nitrogen 15 mg/dL (9-23) Creatinine 0.76 mg/dL (0.550-1.02) Glomerular Filtration Rate Calc 75 mL/min (>90) BUN/Creatinine Ratio 19.7 (10.0-20.0) Serum Glucose 92 mg/dL (74-106) Calcium Level 8.5 mg/dL (8.7-10.4) Total Bilirubin 0.6 mg/dL (0.2-1.0) Aspartate Amino Transferase (AST) 52 U/L (13-40) Alanine Aminotransferase (ALT) 30 U/L (7-40) Alkaline Phosphatase 79 U/L (46-116) Total Protein 5.4 g/dL (5.7-8.2) Albumin 3.2 g/dL (3.2-4.8) Test 04/13/25 00:21 Thyroid Stimulating Hormone (TSH) 3.69 uIU/mL (0.55-4.78) Other Laboratory Tests 04/13/25 05:11 Brief Hx & Hospital Course: 89-year-old female with a history of hypertension hypercholesterolemia hypothyroidism AFib on Eliquis had complicated fracture right hip underwent right hemiarthroplasty at [place] and transferred back to [facility]. Patient complaining of pain at the operation site Physical therapy ordered who recommended prison facility placement for physical therapy medication management and rehab. The patient had UTI treated with Rocephin. Urine cultures came negative and antibiotics were discontinued. orthopedic consult by who recommended pain medication physical therapy weight- bearing as tolerated right lower extremity and follow up in two weeks in his clinic. Patient's daughter Gilma [phone] requesting patient to be transferred to prison facility for rehab. she prefers [facility] Consults/Reason for consult Orthopedic Dr Mayo Operations or Procedures kristofer Arthroplasty right hip at [place] Condition at Discharge: Fair Final Diagnosis/Problems List Fracture right femoral head status post right hemiarthroplasty at [place]: Consult Placed for orthopedic Dr Mayo advised pain management weight-bearing as tolerated and follow up with the ortho in two weeks AFib on Eliquis Hypertension Hyperlipidemia Hypothyroidism UTI: Treated with Rocephin, urine cultures neg Daughter Gilma [phone] bedside and requesting prison facility placement for rehab, physical therapy recommended prison facility, pt was in [facility] one year ago, discharged to [facility] Discharge Disposition: Detention Facility Discharge Instruct/Medications Diet: Cardiac 2g Na,low cholest Activity: Light activity Activity comment: wt bearing as tolerated right lower extremity Follow Up/Referral: Follow up with the [facility] Medications: See list Scheduled Apixaban Base (Eliquis), 2.5 MG PO BID, (Reported) Apixaban Base (Eliquis), 1 TAB PO BID, (Reported) Aspirin (Aspir-Low), 81 MG PO DAILY, (Reported) Cefadroxil Hemihydrate (Cefadroxil), 50 MG PO BID, (Reported) Ciprofloxacin Hcl (Cipro), 1 TAB PO DAILY Flecainide Acetate (Flecainide Acetate), 50 MG PO Q12HR, (Reported) Flecainide Acetate (Tambocor Tablet), 25 MG PO BID, (Reported) Levothyroxine Sodium (Levothyroxine Sodium), 88 MCG PO QAM, (Reported) Lisinopril (Lisinopril), 1 TAB PO DAILY, (Reported) Metoprolol Succinate (Metoprolol Succinate Er), 1 TAB PO DAILY, (Reported) Pravastatin Sodium (Pravachol Tablet), 40 MG PO DAILY, (Reported) Miscellaneous Medications Hydrochlorothiazide (Hydrochlorothiazide), TAB PO, (Reported) 39 (time taken for discharge summary 39 minute) Discharge Statement: "Patient was advised to return to the ER or call 911 if any headaches, dizziness, shortness of breath, chest pain, abdominal pain, bleeding, fevers, or worsening of medical condition. Patient was counseled about treatment plan, medications, possible side effects, patientverbalized understanding. All questions were answered to the best of my ability. This discharge took greater then 30 minutes in planning, reviewing documentation, counseling the patient, and discussing with other team members." ASSESSMENT ASSESSMENT Hospital Course Uneventful Assessment Fracture right femoral head status post right hemiarthroplasty at [place]: Consult Placed for orthopedic Dr Mayo advised pain management weight-bearing as tolerated and follow up with the ortho in two weeks AFib on Eliquis Hypertension Hyperlipidemia Hypothyroidism UTI: Treated with Rocephin, urine cultures neg Daughter Gilma [phone] bedside and requesting prison facility placement for rehab, physical therapy recommended prison facility, pt was in [facility] one year ago, discharged to [facility] Date of Service: Apr 18, 2025 Billing Provider: YAHIR JEFFRIES MD Common Visit Codes: [id number] DISCH DAY >30min YAHIR JEFFRIES MD Apr 18, 2025 11:54
[2025-04-18] MEDS: Ensure HIGH Protein Chocolate 8oz Bottle PO SCH (12:06)
[2025-04-18] MEDS: ATORVASTATIN 20 MG TAB PO SCH (22:24)
[2025-04-18] MEDS: FLECAINIDE ACETATE 50 MG TAB PO SCH (22:24)
[2025-04-18] MEDS: METOPROLOL TARTRATE 25 MG TAB PO SCH (22:24)
[2025-04-19] VITALS (8 sets, daily range): BP systolic 123–138; BP diastolic 60–79; PULSE 61–107; RESP 16–18; TEMP 97.6–98.3; O2SAT 95–97
[2025-04-19] MEDS: LEVOTHYROXINE SODIUM 88 MCG TAB PO SCH (05:12)
--- NOTE | 2025-04-19 08:29 | DVHPN2 ---
Reviewed: Care Plan, H&P, Labs, Medications, Previous Orders, Radiology Changes from previous H/P or p: No Changes Eyes: No Pain, No Vision change, No Conjunctivae inflammation, No Eyelid inflammation, No Other, No Redness ENT: No Ear pain, No Ear discharge, No Nose pain, No Nose discharge, No Nose congestion, No Mouth pain, No Mouth swelling, No Throat pain, No Throat swelling, No Other Cardiovascular: No Chest Pain, No Palpitations, No Orthopnea, No Paroxysmal Noc. Dyspnea, No Edema, No Lt Headedness, No Other Respiratory: No Cough, No Dry, No Shortness of breath, No SOB with excertion, No Wheezing, No Hemoptysis, No Pleuritic Pain, No Sputum, No Other Gastrointestinal: No Nausea, No Vomiting, No Abdominal Pain, No Diarrhea, No Constipation, No Melena, No Hematochezia, No Other Genitourinary: No Dysuria, No Frequency, No Incontinence, No Hematuria, No Retention, No Other Musculoskeletal: other (Right hip pain); No neck pain, No shoulder pain, No arm pain, No back pain, No hand pain, No leg pain, No foot pain Skin: No Rash, No Lesions, No Jaundice, No Bruising, No Other Objective Vitals Vital Signs Date Time Temp Pulse Resp B/P (MAP) Pulse Ox O2 Delivery O2 Flow Rate FiO2 04/19/25 05:00 97.7 68 16 136/60 (85) 95 97.7 04/18/25 20:00 Room Air* 0 21 Intake/Output Intake and Output 04/19/25 06:59 Intake Total 1600 ml Output Total 1350 ml Balance 250 ml Intake Oral 1550 ml IV Total 50 ml Output Urine Total 1350 ml # Bowel Movements 1 General Appearance: Alert, Cooperative, No acute distress HEENT: Atraumatic, PERRLA, EOMI, Mucous membr. moist/pink Neck: Supple Lungs: Clear to auscultation, Normal air movement Cardiovascular: Regular rate, Normal S1, Normal S2, No murmurs, Gallops, Rubs Abdomen: Normal bowel sounds, Soft, No tenderness Neuro: Cranial nerves 3-12 NL Psych/Mental Status: Mental status NL Medications Current Medications Medications Dose Ordered Sig/Rafia Route Start Time Stop Time Status Last Admin Dose Admin Ceftriaxone Sodium 50 ml @ 100 mls/hr DAILY@0000 IV 04/18/25 00:00 04/18/25 23:56 100 MLS/HR Lisinopril 20 mg DAILY PO 04/19/25 10:00 Hydralazine HCl 10 mg Q6HP PRN IV 04/18/25 11:00 Sodium Chloride 1,000 ml @ 60 mls/hr [id number] IV 04/18/25 11:00 Acetaminophen/ Hydrocodone Bitart 1 tab Q4HP PRN PO 04/18/25 11:00 Ondansetron HCl 4 mg Q4HP PRN IV 04/18/25 11:00 Docusate Sodium 100 mg BIDPRN PRN PO 04/18/25 11:00 Enoxaparin Sodium 40 mg DAILY SC 04/19/25 10:00 Acetaminophen 650 mg Q6HP PRN PO 04/18/25 11:00 Morphine Sulfate 2 mg Q4HPRN PRN IV 04/18/25 11:00 Aspirin 81 mg DAILY PO 04/19/25 10:00 Enteral Nutritional Formula 240 ml TIDWM PO 04/18/25 12:00 04/18/25 18:13 240 ML Saccharomyces Boulardii 250 mg DAILY PO 04/19/25 10:00 Atorvastatin Calcium 20 mg HS PO 04/18/25 22:00 04/18/25 22:24 20 MG Flecainide Acetate 25 mg Q12HR PO 04/18/25 22:00 04/18/25 22:24 25 MG Metoprolol Tartrate 25 mg BID PO 04/18/25 22:00 04/18/25 22:24 25 MG Levothyroxine Sodium 88 mcg QAM@0600 PO 04/19/25 06:00 04/19/25 05:12 88 MCG Laboratory Results Laboratory Tests 04/13/25 05:11 Urinalysis Test 04/18/25 09:30 Urine Color Light-yellow (Yellow) Urine Clarity Clear (Clear) Urine pH 7.5 (5.0-9.0) Urine Specific [place] 1.014 (1.001-1.035) Urine Protein Negative (Negative) Urine Ketones Negative (Negative) Urine Blood Negative /uL (Negative) Urine Nitrite Negative (Negative) Urine Bilirubin Negative (Negative) Urine Urobilinogen Normal mg/dL (Negative) Urine Leukocyte Esterase Negative /uL (Negative) Urine RBC 3 /hpf (0 - 4) Urine Microscopic WBC 4 /HPF (0-5) Urine Squamous Epithelial Cells Few /hpf (<5) Urine Bacteria None seen /hpf (None Seen) Urine Glucose Normal mg/dL (Normal) Microbiology Microbiology Date/Time Source Procedure Growth Status 04/12/25 22:45 Urine - Catheterized Urine Culture - Final Complete Labs and/or images reviewed: Labs reviewed by me, Image(s) reviewed by me Assessment/Plan Assessment/Plan Fracture right femoral head status post right hemiarthroplasty at [place]: Consult Placed for orthopedic Dr Mayo advised pain management weight-bearing as tolerated and follow up with the ortho in two weeks AFib on Eliquis Hypertension Hyperlipidemia Hypothyroidism UTI: Treated with Rocephin, urine cultures neg Daughter Gilma [phone] bedside and requesting retirement facility placement for rehab, physical therapy recommended retirement facility, pt was in [place] [facility] one year ago, discharged to [place] [place] [facility] Patient was discharged to retirement facility on 04/18/2025. 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 PHA 04/19/25 In Process Boulardii) (Florastor) 10:00 Flecainide Tablet PHA 04/18/25 In Process (Tambocor Tablet) 22:00 * Skills Auditor CONS 04/18/25 Transmitted Consult Discharge DISCHARGE 04/18/25 Transmitted 11:47 Date of Service: Apr 19, 2025 Billing Provider: YAHIR JEFFRIES MD Common Visit Codes: [id number] INP/OBS CARE(HIGH) YAHIR JEFFRIES MD Apr 19, 2025 08:29
[2025-04-19] MEDS: ENOXAPARIN SOD 40 MG/0.4 ML SYRINGE SC SCH (10:23)
[2025-04-19] MEDS: FLORASTOR (S. BOULARDII) 250 MG CAP PO SCH (10:25)
[2025-04-19] MEDS: LISINOPRIL 20 MG TAB PO SCH (10:28)
[2025-04-20] VITALS (8 sets, daily range): BP systolic 133–147; BP diastolic 54–82; PULSE 60–72; RESP 16–18; TEMP 97.4–98.4; O2SAT 95–97
[2025-04-21 01:00] VITALS: BP 140/50; PULSE 63; RESP 18; TEMP 97.8; O2SAT 95
[2025-04-21 05:00] VITALS: BP 147/59; PULSE 69; RESP 17; TEMP 97.7; O2SAT 93
[2025-04-21 08:00] VITALS: PULSE 71; RESP 17; O2SAT 96
[2025-04-21 09:00] VITALS: BP 139/45; PULSE 71; RESP 17; TEMP 98; O2SAT 96
--- NOTE | 2025-04-21 11:44 | DVHPN2 ---
Reviewed: Care Plan, H&P, Labs, Medications, Previous Orders, Radiology Changes from previous H/P or p: No Changes Eyes: No Pain, No Vision change, No Conjunctivae inflammation, No Eyelid inflammation, No Other, No Redness ENT: No Ear pain, No Ear discharge, No Nose pain, No Nose discharge, No Nose congestion, No Mouth pain, No Mouth swelling, No Throat pain, No Throat swelling, No Other Cardiovascular: No Chest Pain, No Palpitations, No Orthopnea, No Paroxysmal Noc. Dyspnea, No Edema, No Lt Headedness, No Other Respiratory: No Cough, No Dry, No Shortness of breath, No SOB with excertion, No Wheezing, No Hemoptysis, No Pleuritic Pain, No Sputum, No Other Gastrointestinal: No Nausea, No Vomiting, No Abdominal Pain, No Diarrhea, No Constipation, No Melena, No Hematochezia, No Other Genitourinary: No Dysuria, No Frequency, No Incontinence, No Hematuria, No Retention, No Other Musculoskeletal: other (Right hip pain); No neck pain, No shoulder pain, No arm pain, No back pain, No hand pain, No leg pain, No foot pain Skin: No Rash, No Lesions, No Jaundice, No Bruising, No Other Objective Vitals Vital Signs Date Time Temp Pulse Resp B/P (MAP) Pulse Ox O2 Delivery O2 Flow Rate FiO2 04/21/25 11:11 71 139/45 04/21/25 09:00 98.0 17 96 98.0 04/21/25 08:00 Room Air* 0 21 Intake/Output Intake and Output 04/21/25 07:00 Intake Total 1500 ml Output Total 703 ml Balance 797 ml Intake Oral 1450 ml IV Total 50 ml Output Urine Total 703 ml # Bowel Movements 1 General Appearance: Alert, Cooperative, No acute distress HEENT: Atraumatic, PERRLA, EOMI, Mucous membr. moist/pink Neck: Supple Lungs: Clear to auscultation, Normal air movement Cardiovascular: Regular rate, Normal S1, Normal S2, No murmurs, Gallops, Rubs Abdomen: Normal bowel sounds, Soft, No tenderness Neuro: Cranial nerves 3-12 NL Psych/Mental Status: Mental status NL Medications Current Medications Medications Dose Ordered Sig/Rafia Route Start Time Stop Time Status Last Admin Dose Admin Ceftriaxone Sodium 50 ml @ 100 mls/hr DAILY@0000 IV 04/18/25 00:00 04/21/25 00:11 100 MLS/HR Lisinopril 20 mg DAILY PO 04/19/25 10:00 04/21/25 11:07 20 MG Hydralazine HCl 10 mg Q6HP PRN IV 04/18/25 11:00 Sodium Chloride 1,000 ml @ 60 mls/hr [id number] IV 04/18/25 11:00 04/21/25 05:48 60 MLS/HR Acetaminophen/ Hydrocodone Bitart 1 tab Q4HP PRN PO 04/18/25 11:00 Ondansetron HCl 4 mg Q4HP PRN IV 04/18/25 11:00 Docusate Sodium 100 mg BIDPRN PRN PO 04/18/25 11:00 Enoxaparin Sodium 40 mg DAILY SC 04/19/25 10:00 04/21/25 11:04 40 MG Acetaminophen 650 mg Q6HP PRN PO 04/18/25 11:00 Morphine Sulfate 2 mg Q4HPRN PRN IV 04/18/25 11:00 Aspirin 81 mg DAILY PO 04/19/25 10:00 04/21/25 11:04 81 MG Enteral Nutritional Formula 240 ml TIDWM PO 04/18/25 12:00 04/21/25 08:00 240 ML Saccharomyces Boulardii 250 mg DAILY PO 04/19/25 10:00 04/21/25 11:04 250 MG Atorvastatin Calcium 20 mg HS PO 04/18/25 22:00 04/20/25 21:43 20 MG Flecainide Acetate 25 mg Q12HR PO 04/18/25 22:00 04/21/25 11:05 25 MG Metoprolol Tartrate 25 mg BID PO 04/18/25 22:00 04/21/25 11:11 25 MG Levothyroxine Sodium 88 mcg QAM@0600 PO 04/19/25 06:00 04/21/25 05:46 88 MCG Laboratory Results Laboratory Tests 04/13/25 05:11 Urinalysis Test 04/18/25 09:30 Urine Color Light-yellow (Yellow) Urine Clarity Clear (Clear) Urine pH 7.5 (5.0-9.0) Urine Specific [place] 1.014 (1.001-1.035) Urine Protein Negative (Negative) Urine Ketones Negative (Negative) Urine Blood Negative /uL (Negative) Urine Nitrite Negative (Negative) Urine Bilirubin Negative (Negative) Urine Urobilinogen Normal mg/dL (Negative) Urine Leukocyte Esterase Negative /uL (Negative) Urine RBC 3 /hpf (0 - 4) Urine Microscopic WBC 4 /HPF (0-5) Urine Squamous Epithelial Cells Few /hpf (<5) Urine Bacteria None seen /hpf (None Seen) Urine Glucose Normal mg/dL (Normal) Microbiology Microbiology Date/Time Source Procedure Growth Status 04/18/25 09:30 Voided Urine Urine Culture - Final Complete Labs and/or images reviewed: Labs reviewed by me, Image(s) reviewed by me Assessment/Plan Assessment/Plan Fracture right femoral head status post right hemiarthroplasty at [place]: Consult Placed for orthopedic Dr Mayo advised pain management weight-bearing as tolerated and follow up with the ortho in two weeks AFib on Eliquis Hypertension Hyperlipidemia Hypothyroidism UTI: Treated with Rocephin, urine cultures neg Daughter Gilma [phone] bedside and requesting retirement facility placement for rehab, physical therapy recommended retirement facility, pt was in [place] [facility] one year ago, discharged to [place] [facility] Discharge plan changed from retirement facility to home on home health per request of the patient's daughter Sales Representative Facility Services arranging hospital bed Examined today No new complaints Plan discussed with: Patient My Orders Orders - YAHIR JEFFRIES MD Procedure Category Date Status Time Discharge DISCHARGE 04/20/25 Transmitted 12:30 Dme: Hospital Bed DME 04/20/25 Transmitted 12:30 Home Health Nursing REFER 04/20/25 Transmitted 12:32 Discontinue [place] ERIN 04/20/25 In Process Catheter 12:34 * Sales Representative Facility Services CONS 04/20/25 Transmitted Consult 14:31 Date of Service: Apr 21, 2025 Billing Provider: YAHIR JEFFRIES MD Common Visit Codes: [id number] INP/OBS CARE(HIGH) YAHIR JEFFRIES MD Apr 21, 2025 11:43
[2025-04-21 13:00] VITALS: BP 132/50; PULSE 62; RESP 19; TEMP 97.8; O2SAT 95
== END 2025-04-21 13:55 | disposition home health service (06) | DRG 948 ==
LOC: WEST WING 19:38 → UNDODISIN 04-17 16:44
PROVIDERS: ADMIT Family Medicine; ATTEND Family Medicine
DX: G89.18 Other acute postprocedural pain (principal); N39.0 Urinary tract infection, site not specified; I10 Essential (primary) hypertension; E03.9 Hypothyroidism, unspecified; Z20.822 Contact with and (suspected) exposure to COVID-19; I48.91 Unspecified atrial fibrillation; E78.00 Pure hypercholesterolemia, unspecified; Z96.641 Presence of right artificial hip joint; Z79.01 Long term (current) use of anticoagulants
CPT/HCPCS: 36415; 73502; 80053; 80061; 81001; 84443; 85025; 87086; 87426; 97110; 97116; 97163; 97530; G0378